=== PATIENT | female | born 1985 | race African-American/Black ===

== ENCOUNTER 2017-03-23 08:17 | Outpatient (CLI) | payer MEDICARE, MEDICAID ==
--- NOTE | 2017-03-23 09:04 | CT ---
CT THORACIC SPINE NONCONTRAST: History: Back pain. FINDINGS: Vertebral body heights and alignment are maintained. No acute fracture or dislocation are apparent. O steophytosis throughout the vertebral bodies and facets are pronounced for the patient's age. No osse ous encroachment upon the central canal or neural foramina is apparent. No traumatic disc herniation is visible. Inferior images include the retroperitoneum and show atrophy of the kidneys. IMPRESSION: Degenerative changes of the thoracic spine are pronounced for the patient's age. No acute osseous abn ormalities are demonstrated. POS: [facility]
--- NOTE | 2017-03-23 09:37 | CT ---
CT ABDOMEN AND PELVIS WITHOUT CONTRAST: Date: 03/23/17 HISTORY: Right flank pain, renal failure, patient had a renal transplant which has been removed, patient abimbola aguila on dialysis. FINDINGS: Absence of oral and IV contrast reduces the sensitivity of the exam, particularly for evaluation of s olid organs and bowel. The lung bases are clear. No free air or free fluid is seen in the abdomen or pelvis. No calcified ga llstones are seen. Both kidneys are severely atrophic. No calculi seen in the kidneys, ureters, or the urinary bladder. No hydroureteronephrosis noted on either side. Uterus and ovaries are present. A normal appearing appendix is noted. There is fecal material in the colon. Dystrophic calcification seen in the right lower quadrant. No acute osseous abnormalities are identified. IMPRESSION: Atrophic kidneys. No CT evidence of urinary tract calculi or obstruction. POS: [facility]
== END 2017-03-23 08:18 | disposition home or self-care (01) ==
LOC: CT 08:17
PROVIDERS: ATTEND Nurse Practitioner Family
DX: M54.6 Pain in thoracic spine (principal); I15.1 Hypertension secondary to other renal disorders; R94.6 Abnormal results of thyroid function studies; E66.01 Morbid (severe) obesity due to excess calories; N28.89 Other specified disorders of kidney and ureter; M47.894 Other spondylosis, thoracic region; Z99.2 Dependence on renal dialysis
CPT/HCPCS: 72128; 74176

== ENCOUNTER 2017-03-24 12:38 | Observation (INO) | payer MEDICARE, MEDICAID ==
[2017-03-24] MEDS ORDERED: ISOVUE-370 76%-LOCM 1 ML ONE (13:14)
[2017-03-24] MEDS ORDERED: diphenhydrAMINE 50 MG/ML VIAL ONE (13:15)
[2017-03-24] MEDS ORDERED: methylPREDNISolone Sod Succ/PF 125 MG/2 ML VIAL ONE (13:15)
[2017-03-24 13:31] LABS: #Basophils 0.1 thou/uL (0.0-0.2); #Eosinphils 0.1 thou/uL (0.0-0.7); #Lymphocytes 1.9 thou/uL (1.20-3.40); #Monocytes 0.4 thou/uL (0.11-0.59); #Neutrophils 5.2 thou/uL (1.40-6.50); %Basophils 1.2 % (0.0-1.0); %Eosinophils 1.5 % (0.0-10.0); %Lymphocytes 24.2 % (21.0-51.0); %Monocytes 5.7 % (0.0-10.0); %Neutrophils 67.4 % (42.0-75.0); Hemoglobin 14.6 g/dL (12.0-16.0); Mean Corpuscular HGB CONC 31.9 g/dL (32.0-36.0); Mean Corpuscular Hemoglobin 25.6 pg (27.0-31.0); Mean Corpuscular Volume 80.3 fl (81.0-99.0); Mean Platelet Volume 8.7 fL (7.4-10.4); Platelet Count 274 thou/uL (130-400); RBC Distribution Width 16.7 % (11.5-14.5); Red Blood Cell (RBC) Count 5.69 mill/uL (4.20-5.40); White Blood Cell (WBC) Count 7.7 thou/uL (4.8-10.8)
[2017-03-24 13:39] LABS: PTT 26.1 SEC (22.9-36.1); Prothrombin Time 12.8 SEC (12.0-14.7)
[2017-03-24 13:55] LABS: ALT (SGPT) 11 U/L (8-55); AST (SGOT) 14 U/L (5-34); Albumin 4.2 g/dL (3.5-5.0); Alkaline Phosphatase 87 U/L (40-150); Anion Gap 19 mmol/L (10-20); BUN (Urea Nitrogen) 31 mg/dL (7.0-18.7); Bilirubin, Total 0.6 mg/dL (0.2-1.2); CK (CPK) 139 U/L (29-168); Calc. Creatinine Clearance 0 mL/min (70-130); Carbon Dioxide 31 mmol/L (22-29); Chloride 93 mmol/L (98-107); Estimated GFR-MDRD 8; Globulin 4.6 g/dL (2.4-3.5); Glucose 108 mg/dL (70-105); Potassium 5.4 mmol/L (3.5-5.1); Protein, Total 8.8 g/dL (6.0-8.3); Sodium 138 mmol/L (136-145)
[2017-03-24 13:59] LABS: CKMB 0.8 ng/mL (0-6.6); Troponin I 0.032 ng/mL (< 0.028)
--- NOTE | 2017-03-24 15:26 | CT ---
CT ANGIO OF THE CHEST WITH AND WITHOUT CONTRAST WITH 3D POST PROCESSING: History: Right sided midback pain. FINDINGS: The pulmonary arterial vasculature is well opacified without filling defects to suggest pulmonary emb olism. There is no evidence of dilatation of the thoracic aorta. No pneumothoraces, focal areas of co nsolidation, or pleural effusions are seen. No pericardial effusion identified. Three are three tiny nodular densities very close to one another in the left upper lobe. No acute osseous abnormality garrick ntified. There are degenerative changes in the spine. Upper abdominal tomograms demonstrate atrophy k idneys. IMPRESSION: No CT evidence of pulmonary embolism. POS: [facility]
[2017-03-24] MEDS ORDERED: Ondansetron HCl/PF 4 MG/2 ML Vial ONE (16:28)
[2017-03-24 18:58] VITALS: BMI 45.7
[2017-03-24] MEDS ORDERED: Morphine 4 MG/ML Carpuject SLOW IVP PRN (19:04)
[2017-03-24] MEDS ORDERED: Ondansetron ODT 4 MG TAB SL PRN (19:05)
[2017-03-24] MEDS ORDERED: HYDROcodone/Acetaminophen 5/325 mg Tablet PO PRN ×2 (19:05)
[2017-03-24] MEDS ORDERED: Ondansetron HCl/PF 4 MG/2 ML Vial IVP PRN (19:05)
[2017-03-24] MEDS ORDERED: Acetaminophen 325 MG TAB PO PRN (19:05)
[2017-03-25] MEDS ORDERED: PROVENTIL INHALER 6.7 G (200 INHALATIONS) INH PRN (00:05)
[2017-03-25] MEDS ORDERED: tiZANidine HCl 4 MG TAB PO PRN (00:05)
[2017-03-25] MEDS ORDERED: cloNIDine 0.1 MG TAB PO PRN (00:05)
[2017-03-25] MEDS ORDERED: traMADol HCl 50 MG TAB PO PRN (00:05)
[2017-03-25] MEDS ORDERED: Albuterol Sulfate 2.5 mg/3 ml Neb NEB PRN (00:05)
[2017-03-25] MEDS ORDERED: ALPRAZolam 1 MG TAB PO SCH ×2 (00:15→09:00)
[2017-03-25] MEDS ORDERED: Gabapentin 100 MG CAP PO SCH ×2 (00:15→09:00)
[2017-03-25] MEDS ORDERED: Topiramate 25 MG TAB PO SCH ×2 (00:15→09:00)
[2017-03-25 02:26] LABS: Anion Gap 23 mmol/L (10-20); BUN (Urea Nitrogen) 44 mg/dL (7.0-18.7); Calc. Creatinine Clearance 17 mL/min (70-130); Calcium 9.2 mg/dL (7.8-10.44); Carbon Dioxide 25 mmol/L (22-29); Chloride 92 mmol/L (98-107); Estimated GFR-MDRD 6; Glucose 145 mg/dL (70-105); Potassium 5.9 mmol/L (3.5-5.1); Sodium 134 mmol/L (136-145)
[2017-03-25 02:40] LABS: HBSAg Index 0.47 S/CO (0-0.99); Hep B Surf Ag Non-Reactive S/CO (NonReactive)
[2017-03-25] MEDS ORDERED: Dextrose 50% Abboject 50 ML SYRINGE SLOW IVP SCH (03:00)
[2017-03-25] MEDS ORDERED: Sodium Bicarb 50 MEQ/50 ML VIAL IVP SCH (03:00)
[2017-03-25] MEDS ORDERED: Insulin Regular 300 UNITS/3 ML VIAL IVP SCH (03:00)
[2017-03-25] MEDS ORDERED: Ondansetron ODT 4 MG TAB PO PRN (03:22)
[2017-03-25] MEDS ORDERED: Calcium Carbonate 500 MG ChewTAB PO PRN (03:22)
[2017-03-25] MEDS ORDERED: Nitroglycerin 0.4 MG TAB (25 Tab Bottle) PO PRN (03:22)
[2017-03-25] MEDS ORDERED: Ondansetron HCl/PF 4 MG/2 ML Vial IVP PRN (03:22)
[2017-03-25] MEDS ORDERED: hydrALAZINE 20 MG/ML VIAL SLOW IVP PRN (03:25)
[2017-03-25 03:44] LABS: BHCG - Serum Negative (NEGATIVE); Pregs Control Background? CLEAR/WHITE (CLR/WHITE); Pregs Control Bar Appear? YES (CONTROL BAR)
[2017-03-25] MEDS ORDERED: Sodium Bicarb 50 MEQ/50 ML Abboject 8.4% SYRINGE IVP SCH (04:00)
--- NOTE | 2017-03-25 04:01 | HP ---
DATE OF ADMISSION: 03/24/2017 The patient was seen and examined on 03/24/2017. PRIMARY CARE PHYSICIAN: JENNIFER Angel CHIEF COMPLAINT: Right-sided back pain of three weeks' duration. HISTORY OF PRESENT ILLNESS: Patient is a 31-year-old female with end-stage renal disease on hemodial ysis, presented to the emergency room with right-sided back pain that has been ongoing for last 3 wee ks. The pain got worse today, for which she presented to the emergency room. Her pain is mainly loc alized around the right flank. It is more or less constant, worse on movement. She denies any injur y. No fever or chills reported. The pain is localized without any radiation. She has seen a primar care physician for the same and underwent a CT scan of the thoracic spine yesterday that was negati ve for acute findings. No similar symptoms in the past. In the emergency room, her workup was consistent with hyperkalemia. She received 1 dose of Kayexalat e, Zofran, Solu-Medrol, Benadryl, and morphine in the emergency room. PAST MEDICAL HISTORY: 1. End-stage renal disease on hemodialysis. 2. Status post failed allograft. 3. Morbid obesity with a BMI of 45.7. 4. Mild intermittent asthma. 5. Anxiety, depression. PAST SURGICAL HISTORY: 1. Kidney transplant in 2004. 2. Dialysis access. ALLERGIES: The patient is allergic to IODINE and LATEX. CURRENT HOME MEDICATIONS: Albuterol nebulizer as needed, albuterol inhaler as needed, Xanax 1 mg b.i .d., vitamin D3 of 1000 units daily, clonidine as needed, multivitamin daily, Lopressor 12.5 mg daily , Remeron 30 mg daily, Protonix 40 mg b.i.d., Seroquel 300 mg daily, tizanidine 4 mg as needed, Topam ax 50 mg b.i.d., Ultram as needed. SOCIAL HISTORY: Patient currently lives at home. Denies any alcohol, tobacco, or drug use. FAMILY HISTORY: Negative for cardiac disease. REVIEW OF SYSTEMS: The following complete review of systems was negative, unless otherwise mentioned in the HPI or below: Constitutional: Weight loss or gain, ability to conduct usual activities. Skin: Rash, itching. Eyes: Double vision, pain. ENT/Mouth: Nose bleeding, neck stiffness, pain, tenderness. Cardiovascular: Palpitations, dyspnea on exertion, orthopnea. Respiratory: Shortness of breath, wheezing, cough, hemoptysis, fever or night sweats. Gastrointestinal: Poor appetite, abdominal pain, heartburn, nausea, vomiting, constipation, or diarr hea. Genitourinary: Urgency, frequency, dysuria, nocturia. Musculoskeletal: Pain, swelling. Neurologic/Psychiatric: Anxiety, depression. Allergy/Immunologic: Skin rash, bleeding tendency. PHYSICAL EXAMINATION: VITAL SIGNS: Showed temperature 98.4, respiration 18, pulse rate of 116, blood pressure of 106/59, O 2 saturation 98% on room air. GENERAL: A 31-year-old female in mild distress due to right flank pain. HEENT: Head, atraumatic, normocephalic. Sclerae anicteric. Moist mucous membranes. No oral lesion . NECK: Supple, no JVD, no carotid bruit. LUNGS: Clear to auscultation bilaterally. HEART: S1, S2 present. Regular rate and rhythm. No murmurs, rubs, or gallops appreciated. ABDOMEN: Soft, nontender, bowel sounds present. EXTREMITIES: No edema or calf tenderness. MUSCULOSKELETAL: There was tenderness over the right flank on superficial palpation. No tenderness over the spine. EXTREMITIES: No edema or calf tenderness. NEUROLOGIC: Grossly nonfocal, moves all four extremities. Power was 5/5 in all extremities. PSYCHIATRY: Alert, awake, oriented x3. PERIPHERAL VASCULAR: Radial pulses palpable bilaterally. MUSCULOSKELETAL: No joint swelling or tenderness. LABORATORY FINDINGS: CBC showed WBC 7.7 with hemoglobin 14.6, hematocrit 45.7, platelet of 274,000. PT, INR, PTT normal range. Potassium in the emergency room was 5.4. Repeat potassium today is 5.9. Troponin in the emergency room was 0.032. Troponin last year was 0.045. CT angiogram of the chest was negative for pulmonary embolism. Cardiac catheterization in 2015 was negative. Echocardiogram in 2015 showed left ventricular ejection fraction of 60-65%. IMPRESSION: 1. Right flank pain, suspected musculoskeletal. 2. Hyperkalemia of unclear etiology. The patient underwent hemodialysis on Wednesday (03/24/2017). 3. History of end-stage renal disease on hemodialysis Wednesday, Wednesday, Wednesday. 4. Anxiety and depression. 5. Mild intermittent asthma. 6. Morbid obesity with a BMI of 45.7. 7. Indeterminate troponins, probably secondary to renal disease. Patient had a negative cardiac cat heterization in 2014. PLAN: The patient will be monitored on the telemetry unit. Nephrology has been consulted. She will undergo hemodialysis per Nephrology. Her telemetry monitoring by my review showed peaked T waves. We will give her insulin D50 [address] Santana was notified with the labs with potas sium 5.9. Dr. Santana recommended repeat Kayexalate. We will resume her home medications including muscle relaxants. Plan of care was discussed with the patient. She stated understanding. DISPOSITION: Probably later today after hemodialysis if okay with Nephrology. The patient was advised to follow up with the primary care physician for right flank pain. Please note that the patient was seen and examined on 03/24/2017.
--- NOTE | 2017-03-25 06:13 | CON ---
DATE OF CONSULTATION: 03/24/2017. CONSULTING PHYSICIAN: Dr. Gomez. REASON FOR CONSULTATION: End-stage renal disease evaluation and care. REASON FOR ADMISSION: Back pain. HISTORY OF PRESENT ILLNESS: A 31-year-old female with a history of end-stage renal disease, hypertension, tachycardia, pulmonary disease came to the hospital with above symptoms and is being ev aluated. Nephrology was consulted for maintenance hemodialysis. The patient complains of back pain for the last 3 weeks with tenderness. No fever or chills. No nausea or vomiting. Occasional cough. No skin rash. PAST MEDICAL HISTORY: Positive for end-stage renal disease, pulmonary disease, tachycardia. PAST SURGICAL HISTORY: Transplant and dialysis access placement. HOME MEDICATIONS: Include Protonix, Xanax, oxcarbazepine, vitamin D3, Ultram, Seroquel. ALLERGIES: IODINE AND LATEX GLOVES. SOCIAL HISTORY: No smoking, alcohol, or illicit drug abuse. FAMILY HISTORY: No history of kidney disease. REVIEW OF SYSTEMS: The following complete review of systems was negative, unless otherwise mentioned in the HPI or below: Constitutional: Weight loss or gain, ability to conduct usual activities. Skin: Rash, itching. Eyes: Double vision, pain. ENT/Mouth: Nose bleeding, neck stiffness, pain, tenderness. Cardiovascular: Palpitations, dyspnea on exertion, orthopnea. Respiratory: Shortness of breath, wheezing, cough, hemoptysis, fever, or night sweats. Gastrointestinal: Poor appetite, abdominal pain, heartburn, nausea, vomiting, constipation, or diarr hea. Genitourinary: Urgency, frequency, dysuria, nocturia. Musculoskeletal: Pain, swelling. Neurologic/Psychiatric: Anxiety, depression. Allergy/Immunologic: Skin rash, bleeding tendency. PHYSICAL EXAMINATION: GENERAL: This is an obese female in no apparent distress. VITAL SIGNS: Temperature 98.4, pulse 94, respiratory rate 18, blood pressure 128/76. HEENT: Atraumatic, normocephalic. Oral mucosa is moist. NECK: Supple, no masses. CARDIOVASCULAR: S1, S2. Rate and rhythm regular. RESPIRATORY: Clear. ABDOMEN: Soft. MUSCULOSKELETAL: No tenderness. DERMATOLOGIC: No skin rash. NEUROLOGIC: Alert, awake. PSYCHIATRIC: Mood and affect normal. back where she is complaining of pain on the right side. LABORATORY DATA: Hemoglobin is 14.6, potassium is 5.4, BUN is 31, creatinine is 7.4. ASSESSMENT AND PLAN: 1. End-stage renal disease. We will continue dialysis. 2. Mild hyperkalemia. Recheck labs in the morning. If persistent, we will have dialysis. 3. Alkalosis, mild. 4. Edema, controlled. 5. Hypertension, stable. 6. Anemia. Hemoglobin is stable. Repeat labs in the morning. Limit potassium in the diet. We will follow. Thank you for the consult.
[2017-03-25] MEDS ORDERED: Acetaminophen 325 MG TAB PO SCH (09:00)
[2017-03-25] MEDS ORDERED: Pantoprazole 40 MG GRANULES PACKET PO SCH (09:00)
[2017-03-25] MEDS ORDERED: Metoprolol Tartrate 25 MG TAB PO SCH (09:00)
[2017-03-25] MEDS ORDERED: Docusate 100 MG CAP PO SCH (09:00)
[2017-03-25] MEDS ORDERED: Mirtazapine 30 MG TAB PO SCH (09:00)
[2017-03-25] MEDS ORDERED: Famotidine 20 MG TAB PO SCH (09:00)
[2017-03-25] MEDS ORDERED: Lidocaine-Prilocaine 2.5% Cream 5 GM TUBE TOP SCH (10:00)
--- NOTE | 2017-03-25 13:46 | ULT ---
EXAM: RENAL ULTRSOUND: HISTORY: Three weeks of right flank pain. COMPARISON: None. TECHNIQUE: Sagittal and transverse imaging of the kidneys is performed. FINDINGS: Neither kidney is well defined or could be well assessed. There appears to be severe thinning of the right renal cortex. No obvious hydronephrosis in what is presumed to be the visualized right kidney . Suspected right kidney measures 2.0 x 2.4 x 5.9 cm. The urinary bladder is not appreciated. IMPRESSION: Suboptimally nondiagnostic exam. POS: [facility]
--- NOTE | 2017-03-25 15:25 | PRG ---
DATE OF SERVICE: 03/25/2017 SUBJECTIVE: Patient was seen and examined at bedside and overnight events noted. Patient denies any shortness of breath or chest pain or palpitation. No history of nausea or vomiting or diarrhea or f ever or chills or cramps. OBJECTIVE: GENERAL: This is an obese female in no apparent distress. VITAL SIGNS: Temperature 98.2, pulse 80, respiratory rate 16, blood pressure 131/81. HEENT: Atraumatic, normocephalic. Oral mucosa is moist. NECK: Supple. CARDIOVASCULAR: S1, S2 heard. Rate and rhythm regular. RESPIRATORY: Clear to auscultation. GASTROINTESTINAL: Abdomen is soft. MUSCULOSKELETAL: No tenderness. No edema. DERMATOLOGIC: No skin rash. NEUROLOGIC: Alert and awake and oriented x3. No focal neurologic deficits. Moving all the extremiti es. PSYCHIATRIC: Mood and affect normal. LABORATORY DATA: Potassium is 5.9, BUN is 44, creatinine is 9.2. ASSESSMENT AND PLAN: 1. End-stage renal disease, continue dialysis. Extra dialysis today for 2 hours. 2. Hyperkalemia. Plan is to have dialysis and limit potassium in the diet. 3. Edema. 4. Hypertension. 5. Anemia. Plan is to continue on dialysis Wednesday, Wednesday, and Wednesday and we will have an extra session of di alysis for hyperkalemia today.
[2017-03-25 15:34] LABS: Anion Gap 19 mmol/L (10-20); BUN (Urea Nitrogen) 27 mg/dL (7.0-18.7); Calc. Creatinine Clearance 28 mL/min (70-130); Calcium 8.9 mg/dL (7.8-10.44); Carbon Dioxide 29 mmol/L (22-29); Chloride 95 mmol/L (98-107); Estimated GFR-MDRD 11; Glucose 87 mg/dL (70-105); Potassium 3.7 mmol/L (3.5-5.1); Sodium 139 mmol/L (136-145)
[2017-03-25 15:58] VITALS: BP 148/76; TEMP 97.6
--- NOTE | 2017-03-25 23:14 | DIS ---
DATE OF ADMISSION: 03/24/2017. DATE OF DISCHARGE: 03/24/2017. PRIMARY CARE PHYSICIAN: JENNIFER Angel CONDITION AT THE TIME OF DISCHARGE: Stable and improved. DISCHARGE DIAGNOSES: 1. Hyperkalemia. 2. End-stage renal disease, on hemodialysis. 3. Hypertension. 4. Anemia. 5. Right flank pain ongoing for 3 weeks without any specific cause, likely musculoskeletal. PROCEDURES DONE IN THE HOSPITAL: 1. CT angio of the thorax, which is negative for any pulmonary embolism. 2. Renal ultrasound which shows atrophic kidneys, but no significant evidence of stones or pyeloneph ritis. 3. Hemodialysis. CONSULTATION: Nephrology, Dr. Santana. DISCHARGE MEDICATIONS: Remain the same as admission medications. Please see admission H&P for hattie ls. BRIEF HOSPITAL COURSE: Ms. Ye was admitted to the hospital for findings of hyperkalemia with po tassium of 5.4. She received the hyperkalemia cocktail and was admitted for further evaluation. She was otherwise hemodynamically stable. She has complaints of ongoing right flank pain for 3 weeks and has had multiple workups including a C T scan of the thoracic spine and CT scan of the abdomen and pelvis without any clear etiology. She u nderwent a renal ultrasound, which was also unremarkable. She underwent a CT angio, which was also negative. She was continued on hemodialysis and received extra hemodialysis for removal of the potassium. Her potassium improved to 3.7 with hemodialysis back to back and she was cleared for discharge. She will follow up with her primary care physician and fire ranger as an outpatient. At this time, she is hemodynamically stable. She was seen and examined by me prior to discharge. PHYSICAL EXAMINATION: VITAL SIGNS: Temperature 97.2, pulse of 91, respirations 16, saturating 100% on room air, blood pres sure 131/81. No acute distress, awake, alert, oriented x3. CHEST: Clear to auscultation without any wheezing, rales, or rhonchi. HEART: Rhythm is regular. BACK: She has some mild right-sided CVA tenderness without any evidence of hematoma, skin discolorat ion. She will continue to follow up with her primary care physician with regards to further workup of her flank pain as necessary. So far, there is no evidence to suggest any infection.
== END 2017-03-25 15:54 | disposition home or self-care (01) ==
LOC: ERS 12:38 → 2SW 17:15
PROVIDERS: ADMIT Internal Medicine; ATTEND Internal Medicine
DX: E87.5 Hyperkalemia (principal); I12.0 Hypertensive chronic kidney disease with stage 5 chronic kidney disease or end stage renal disease; N18.6 End stage renal disease; D63.1 Anemia in chronic kidney disease; R10.9 Unspecified abdominal pain; E66.01 Morbid (severe) obesity due to excess calories; R60.9 Edema, unspecified; R00.0 Tachycardia, unspecified; E87.3 Alkalosis; J45.20 Mild intermittent asthma, uncomplicated; F41.9 Anxiety disorder, unspecified; F32.9 Major depressive disorder, single episode, unspecified; Z68.42 Body mass index [BMI] 45.0-49.9, adult; Z99.2 Dependence on renal dialysis; Z79.899 Other long term (current) drug therapy; Z91.041 Radiographic dye allergy status; Z91.040 Latex allergy status; Z94.0 Kidney transplant status
CPT/HCPCS: 71275; 76770; 80048 ×2; 80053; 82550; 82553; 83880; 84484; 84703; 85025; 85610; 85730; 87340; 96374; 96375 ×2; 99285; G0378; 36415; 90935; G0257; J1200; J1815; J2270; J2405; J2930

== ENCOUNTER 2017-07-09 12:11 | Emergency (ER) | payer MEDICARE, MEDICAID ==
[2017-07-09 13:24] LABS: #Basophils 0.1 thou/uL (0.0-0.2); #Eosinphils 0.1 thou/uL (0.0-0.7); #Lymphocytes 2.4 thou/uL (1.20-3.40); #Monocytes 0.7 thou/uL (0.11-0.59); #Neutrophils 6.2 thou/uL (1.40-6.50); %Eosinophils 1.4 % (0.0-10.0); %Lymphocytes 25.5 % (21.0-51.0); %Neutrophils 65.2 % (42.0-75.0); Hemoglobin 15.5 g/dL (12.0-16.0); Mean Corpuscular HGB CONC 32.2 g/dL (32.0-36.0); Mean Corpuscular Hemoglobin 26.7 pg (27.0-31.0); Mean Corpuscular Volume 82.9 fl (81.0-99.0); Mean Platelet Volume 7.5 fL (7.4-10.4); Platelet Count 265 thou/uL (130-400); RBC Distribution Width 16.4 % (11.5-14.5); Red Blood Cell (RBC) Count 5.81 mill/uL (4.20-5.40); White Blood Cell (WBC) Count 9.5 thou/uL (4.8-10.8)
[2017-07-09 13:50] LABS: ALT (SGPT) 7 U/L (8-55); AST (SGOT) 10 U/L (5-34); Albumin 4.4 g/dL (3.5-5.0); Alkaline Phosphatase 75 U/L (40-150); Anion Gap 20 mmol/L (10-20); BUN (Urea Nitrogen) 33 mg/dL (7.0-18.7); Bilirubin, Total 0.7 mg/dL (0.2-1.2); Calc. Creatinine Clearance 0 mL/min (70-130); Calcium 9.3 mg/dL (7.8-10.44); Carbon Dioxide 26 mmol/L (22-29); Chloride 94 mmol/L (98-107); Estimated GFR-MDRD 6; Globulin 4.7 g/dL (2.4-3.5); Glucose 89 mg/dL (70-105); Potassium 4.9 mmol/L (3.5-5.1); Protein, Total 9.1 g/dL (6.0-8.3); Sodium 135 mmol/L (136-145)
== END 2017-07-09 14:38 | disposition home or self-care (01) ==
LOC: ERS 12:11
DX: I95.3 Hypotension of hemodialysis (principal); R00.0 Tachycardia, unspecified; J45.909 Unspecified asthma, uncomplicated; N18.4 Chronic kidney disease, stage 4 (severe); F41.9 Anxiety disorder, unspecified; F32.9 Major depressive disorder, single episode, unspecified; Z99.2 Dependence on renal dialysis; Z79.899 Other long term (current) drug therapy
CPT/HCPCS: 36415; 80053; 85025; 93005; 96360

== ENCOUNTER 2018-01-28 09:28 | Observation (INO) | payer MEDICARE, MEDICAID ==
[2018-01-28 10:20] LABS: #Basophils 0.1 thou/uL (0.0-0.2); #Eosinphils 0.1 thou/uL (0.0-0.7); #Lymphocytes 2.2 thou/uL (1.20-3.40); #Monocytes 0.8 thou/uL (0.11-0.59); %Basophils 1.2 % (0.0-1.0); %Eosinophils 0.8 % (0.0-10.0); %Lymphocytes 21.7 % (21.0-51.0); %Monocytes 7.4 % (0.0-10.0); Hemoglobin 14.4 g/dL (12.0-16.0); Mean Corpuscular Hemoglobin 26.1 pg (27.0-31.0); Mean Corpuscular Volume 84.3 fL (78.0-98.0); Mean Platelet Volume 7.6 fL (7.4-10.4); Platelet Count 201 thou/uL (130-400); RBC Distribution Width 16.3 % (11.5-14.5); Red Blood Cell (RBC) Count 5.52 mill/uL (4.20-5.40); White Blood Cell (WBC) Count 10.1 thou/uL (4.8-10.8)
[2018-01-28 10:29] LABS: PTT 27.9 SEC (22.9-36.1)
[2018-01-28 10:30] LABS: D-Dimer Test 0.95 *mcg/mL (0.27-0.43)
--- NOTE | 2018-01-28 10:32 | RAD ---
PORTABLE CHEST ONE VIEW: Date: 01-28-18 Time: 10:17 a.m. History: Chest pain. Patient is on dialysis. FINDINGS: Comparison is made with exam of 06-08-16. The heart size is normal. No focal areas of consolidation, pneumothorax, or pleural effusions are see n. IMPRESSION: No radiographic evidence of acute cardiopulmonary process. POS: [facility]
[2018-01-28 10:44] LABS: ALT (SGPT) 13 U/L (8-55); AST (SGOT) 13 U/L (5-34); Albumin 3.4 g/dL (3.5-5.0); Alkaline Phosphatase 55 U/L (40-150); Anion Gap 14 mmol/L (10-20); BUN (Urea Nitrogen) 14 mg/dL (7.0-18.7); Bilirubin, Total 0.5 mg/dL (0.2-1.2); Calc. Creatinine Clearance 0 mL/min (70-130); Calcium 10.3 mg/dL (7.8-10.44); Carbon Dioxide 32 mmol/L (22-29); Chloride 97 mmol/L (98-107); Estimated GFR-MDRD 13; Globulin 3.8 g/dL (2.4-3.5); Glucose 87 mg/dL (70-105); Potassium 3.7 mmol/L (3.5-5.1); Protein, Total 7.2 g/dL (6.0-8.3); Sodium 139 mmol/L (136-145)
--- NOTE | 2018-01-28 14:52 | ULT ---
BILATERAL LOWER EXTREMITY VENOUS DOPPLER ULTRASOUND: Date: 01/28/18 HISTORY: Hypercoagulable state. TECHNIQUE: Tamayo scale ultrasound with color flow and spectral Doppler imaging of the deep venous systems of the lower extremities was performed bilaterally. FINDINGS: There is good flow, compression, and augmentation noted in the common femoral, femoral, deep femoral, popliteal, posterior tibial, and greater saphenous veins on either side. IMPRESSION: No evidence of deep venous thrombosis in either lower extremity. POS: [facility]
--- NOTE | 2018-01-28 15:06 | ULT ---
ULTRASOUND PELVIS DOPPLER DUPLEX: DATE: 01/28/2018. HISTORY: A 32-year-old female in 1st trimester of , who presents to the emergency department with nicky st pain. Evaluate for viability of . TECHNIQUE: Transabdominal transducer was used to evaluate intrapelvic contents with carrillo scale, color flow, and spectral analysis. The patient refused the transvaginal ultrasound. FINDINGS: The urinary bladder is not full. There is somewhat suboptimal evaluation of intrapelvic contents bec ause of a combination of body habitus, lack of full urinary bladder, and lack of transvaginal ultraso und images. Uterus measures 9 x 5.5 x 6.5 cm. There is a crescentic intrauterine gestational sac with dimensions of approximately 4.5 x 2 x 3.5 cm. Yolk sac present. pole visualized. [place] rump length measurement accuracy is decreased because of the low image resolution. CRL=2.0 cm, corresponding to 8 w 4 d. No definite subchorionic hemorrhage identified. heart activity detected with rate of 173 b.p.m. Right ovary is approximately 3 x 3 x 2.5 cm, and has blood flow demonstrated by Doppler. No corpus l uteal cyst. The left ovary is not visualized. No obvious free fluid visualized in the cul-de-sac. IMPRESSION: First trimester live sarmiento intrauterine gestation estimated to be 8 weeks 4 days gestational age. POS: [facility]
[2018-01-28 16:02] LABS: Troponin I 0.018 ng/mL (< 0.028)
[2018-01-28 16:27] VITALS: BMI 47.6
[2018-01-28 19:16] LABS: Troponin I 0.017 ng/mL (< 0.028)
[2018-01-28] MEDS: Famotidine 20 MG TAB PO SCH (19:36)
--- NOTE | 2018-01-28 20:49 | HP ---
PRIMARY CARE PHYSICIAN: Gwen Lane, PURCHASING CONTRACTING CLERK-C CHIEF COMPLAINT: Substernal chest pain. HISTORY OF PRESENT ILLNESS: This is a 32-year-old woman with a background of congestive heart failure as well as end-stage renal disease, currently on hemodialysis. Hx of DVT, recently taken off Heparin 2 days ago. She reports early , but has not yet seen an OB or undergone an ultrasound. She is unsure how far long she is. Due to being , her hemodialysis has been increased to 6 days a week. She presents complaining of chest pain that first occurred yesterday evening, lasting approximately 3 hours and resolving on its own, 6/10 in severity, radiating to her back. She denies any associated shortness of breath, cough, or hemoptysis. She denies any preceding strenuous activity. Denies any dizziness. Has not experienced any leg swelling or pain. Her pain recurred during her dialysis today, similar in intensity. Relieved once aspiring was given. In the ED, she was noted to be hypotensive with a blood pressure of 97/68. She was tachycardiac at 112 upon initial presentation with nonlabored breathing. Her pain improved from 6/10 to 3/10 following the aspirin. Workup was initiated to rule out a PE. A D-dimer was obtained in the ED, was positive. She underwent a chest x-ray that was unremarkable. Initial TNI was normal. The patient was recommended a V/Q scan, however, once the tech came to debt management counselor her on the study, she became alarmed that she was told that it could "harm her baby." For that reason, she has declined the V/Q scan. Further discussed with Dr. Tee who explained risks of having a PE far outweigh any possible harm done to the fetus. Also explained she is high-risk given her PMH and previous miscarriage. She again declined and was agreeable to proceed with investigations for CP rule out. She is under Dr. Frias (Cardiology) and also follows with Dr. Carmona (Nephrology) regularly. She is comfortable at present without any complaints and completely pain-free. She will be admitted for further workup and management. REVIEW OF SYSTEMS: CONSTITUTIONAL: No fever, chills, or sweats. No weakness. RESPIRATORY: No cough or sputum production. No hemoptysis or shortness of breath. CARDIOVASCULAR: Chest pain has resolved. No palpitations. GI: No any nausea or vomiting. She did have nausea on initial presentation, but this resolved with Zofran. Denies any abdominal pain. No bowel changes. GENITOURINARY: No urinary symptoms. MANAGER MOTOR: No dizziness, headaches, or change in mental status. EXTREMITIES: No lower limb swelling, edema, or calf tenderness. PAST MEDICAL HISTORY: 1. End-stage renal disease, on hemodialysis 6 days per week, under Dr. Carmona. 2. Status post failed allograft. 3. Morbid obesity. 4. CHF, under Dr. Frias. 5. Anxiety/depression. 6. Previous miscarriage. 7. History of previous DVT. 8. Asthma. PAST SURGICAL HISTORY: 1. Kidney transplant in 2004. 2. Dialysis access. 3. Cardiac catheterization on 07/23/2014, showing LVEF of 65%. No CAD. SOCIAL HISTORY: She lives at home alone. Denies any alcohol use or drug use. No smoking history. ALLERGIES: 1. IODINE. 2. LATEX GLOVES. CURRENT MEDICATIONS: 1. 1 mg p.o. daily. 2. Heparin, recently discontinued 2 days ago. PHYSICAL EXAMINATION: VITAL SIGNS: Temperature 98.4, pulse 111, respirations 15, O2 saturation 100%, and blood pressure 120/82. HEENT: Normocephalic and atraumatic. Pupils are equal, round, and reactive to light. GENERAL APPEARANCE: The patient was found to be in no distress. She is alert and oriented. Appears to be resting comfortably. NECK: Supple without lymphadenopathy. LUNGS: Clear to auscultation bilaterally without wheezes, rales, or rhonchi. CARDIAC: Regular rate and rhythm without any audible murmurs, rubs, or gallops. ABDOMEN: Soft, nontender, nondistended. Normoactive bowel sounds present. EXTREMITIES: No clubbing, cyanosis, or edema. No calf tenderness. NEUROLOGIC: Unremarkable. No focal deficits. PSYCHIATRIC: Normal affect. Oriented. LABORATORY DATA: White blood count 10.1, hemoglobin 14.4, hematocrit 46.5, and platelets 201. D-dimer is 0.95. Sodium 139, potassium 3.7, BUN 14, creatinine 4.63, eGFR 13. Total bilirubin 0.5. LFTs unremarkable. TnI x2 unremarkable. BNP 10.5. Albumin 3.4. Total beta hCG greater than 225,000. IMAGING DATA: 1. Chest x-ray on 01/28/2018, no radiographic evidence of acute cardiopulmonary process. Heart size is normal. 2. Pelvis ultrasound on 01/28/2018, confirms first trimester live single sarmiento intrauterine gestation, estimated to be 8 weeks and 4 days and gestational age. 3. Venogram 01/28/2018, no evidence of deep venous thrombosis on either of lower extremities. ASSESSMENT AND PLAN: The patient will be admitted to the hospital for further workup and management of the following medical conditions. 1. Possible pulmonary embolism. Awaiting patient's decision regarding V/Q scan following discussion with Dr. Tee. 2. Chest pain rule out. The patient with known history of congestive heart failure. I have discussed the case with her weight calculator Dr. Frias, who agrees with plans for echocardiogram. We will hold off stress test given she is . Cardiology consult placed as per discussion. Awaiting third TNI. 3. ESRD. Consult placed to Nephrology. Will undergo dialysis tomorrow. 4. High-risk . Dr. Tee available to answer any questions related to her treatment. 5. Gastrointestinal prophylaxis. 6. VTE prophylaxis with mechanical SCDs for now. As awaiting work-up for possible DVT/PE. The patient's case was discussed with Dr. Nelson, who is in agreement with plan as above. Job ID: [id number] Pt seen and examined in conjunction with Phi Thomas PA-C on the day of service. I have seen and evaluated the patient and reviewed all documentations. I agree with the findings and plan as outlined in his note and participated in Medical decision-making. Adrian Nelson M.D. ANANT
[2018-01-29] MEDS: Acetaminophen 325 MG TAB PO PRN ×2 (01:19→21:02)
--- NOTE | 2018-01-29 01:51 | CON ---
DATE OF CONSULTATION: 01/28/2018 OB CONSULTATION REFERRING PROVIDER: Shiloh Sanchez PA-C REASON FOR REFERRAL: First trimester . HISTORY OF PRESENT ILLNESS: The patient is a 32-year-old female with longstanding renal disease requiring dialysis, who presented to the emergency room after complaining of chest pain and shortness of breath while receiving dialysis. Evaluation of her initial assessment by the ER providers was concerned for pulmonary embolism. Given the level of risk to this , we were consulted for any counseling or suggestions of management. A viable intrauterine was confirmed today with pole and heart tones present in the 170s and estimated gestational age of about 8 weeks. During the evaluation for pulmonary embolism , the patient has had a normal chest x-ray and has refused a V/Q scan to rule out or evaluate for PE. The patient does have an allergy to iodine containing products. The patient at the time of consenting for the V/Q scan, refused due to the radiation exposure and it was about this time that I was asked to come and help. Upon entering the room and discussing with the patient what I understood of her situation, the patient confirmed that the nuclear equipment research engineer that came to consent her, shared with her that the radiation exposure could harm her child or her fetus and that the radiation would remain within her for the next 24 hours, which concerned the patient enough that she declined any further testing. At the time of my evaluation, the patient did not appear to be in any distress. She was slightly tachycardic in the 100s, but did not appear tachypneic, was not requiring any supplemental oxygenation, was lying fairly supine in the bed, appearing comfortable. The patient has plans to establish care with Dr. Van Ordoñez in the community this Wednesday. The patient has had one previous resulting in a first trimester loss. The patient has communicated her cra officer, who has been dialyzing her 6 days a week given the increased risk for and the apparent improved outcomes with more frequent dilatation, normal frequent dialysis. We did discuss my understanding of her situation that there is concern that she may have a pulmonary embolism as patient does have a history of DVT in the past and only recently was taken off heparin. We discussed the risk of an undiagnosed PE versus limited exposure to radiation to the fetus in the first trimester. We discussed that the radiation exposure is under the threshold that is considered fairly dangerous for the baby and compare that to the potential life-threatening risk of an undiagnosed PE. The patient does not have any obstetric complaints at this time. There is nothing at this point I can offer to the patient's care. She does have a very high risk with about a 40% chance of loss and 50% to 70 % probability of delivery and the elevated risk for hypertensive disorder during this . I did not share these numbers directly with the patient , but did offer to share them with her should she desire to hear the increased risks associated with and her condition. However, given the already very stressful situation she was in and that her encounter was more related to a PE workup than the jeopardy of the , I only shared that the has a higher risk of ending in miscarriage by up to 50% as compared to the very minimal risks associated with radiation. The patient, I believe, is being admitted to the medicine team for evaluation of her chest pain. At this time, the patient has refused any further workup for evaluation of pulmonary embolism. Should anticoagulation be necessary, Lovenox would be the preferred method at this time. I offered to answer any questions that the patient and her family would have, but they did not have any at the time of our encounter. Approximately 15 to 20 minutes were spent [id number]. Job ID: [id number] MTDD
--- NOTE | 2018-01-29 03:20 | CON ---
DATE OF CONSULTATION: 01/28/2018 NEPHROLOGY CONSULT CONSULTING PHYSICIAN: Dr. Crawford REASON FOR CONSULTATION: End-stage renal disease evaluation and care. REASON FOR ADMISSION: Chest pain while dialysis. HISTORY OF PRESENT ILLNESS: Ms. Ye is a 32-year-old female, who is currently and with history of asthma, end-stage renal disease, hypertension, kidney transplant, came to the hospital with the above complaints and be evaluated. The patient was having daily dialysis, and was at dialysis, and snf through dialysis, started having chest pain and was sent to the ER. The patient is feeling better now, but there is concern for PE, and we are awaiting further tests. PAST MEDICAL HISTORY: Positive for end-stage renal disease, tachycardia, asthma and CKD. PAST SURGICAL HISTORY: 1. Kidney transplant. 2. Dialysis. 3. Fistula placement. HOME MEDICATION: vitamin. ALLERGIES: IODINE AND LATEX GLOVES. SOCIAL HISTORY: No smoking or alcohol. FAMILY HISTORY: Negative. REVIEW OF SYSTEMS: CONSTITUTIONAL: Negative for weight loss or gain, ability to conduct usual activities. SKIN: Negative for rash, itching. EYES: Negative for double vision, pain. ENT/MOUTH: Negative for nose bleeding, neck stiffness, pain, tenderness. CARDIOVASCULAR: Negative for palpitations, dyspnea on exertion, orthopnea. RESPIRATORY: Negative for shortness of breath, wheezing, cough, hemoptysis, fever or night sweats. GASTROINTESTINAL: Negative for poor appetite, abdominal pain, heartburn, nausea, vomiting, constipation, or diarrhea. GENITOURINARY: Negative for urgency, frequency, dysuria, nocturia. MUSCULOSKELETAL: Negative for pain, swelling. NEUROLOGIC/PSYCHIATRIC: Negative for anxiety, depression. ALLERGY/IMMUNOLOGIC: Negative for skin rash, bleeding tendency. PHYSICAL EXAMINATION: GENERAL APPEARANCE: Morbidly obese female, in no apparent distress. VITAL SIGNS: Temperature 98.1, pulse 112, respiratory rate 18, blood pressure 145/80. HEENT: Atraumatic, normocephalic. Oral mucosa is moist NECK: Supple. CARDIOVASCULAR: S1, S2 heard. Rate and rhythm regular. RESPIRATORY: Clear. GASTROINTESTINAL: Abdomen is soft. MUSCULOSKELETAL: 1+ edema. DERMATOLOGIC: No skin rash. NEUROLOGIC: Alert and awake and oriented x3. No focal neurologic deficits. LABORATORY DATA: Hemoglobin is 14.4, potassium 3.7, BUN is 14, creatinine is 4.6. ASSESSMENT AND PLAN: 1. End-stage renal disease, on hemodialysis, no dialysis today. We will continue dialysis from tomorrow. Dr. Carmona will be notified. 2. Edema, controlled. 3. Hypertension, stable. 4. Anemia, monitor. The patient is high-risk and we will continue close monitoring. Thank you for the consult. Job ID: [id number] MTDD
[2018-01-29 06:18] LABS: #Basophils 0.1 thou/uL (0.0-0.2); #Eosinphils 0.1 thou/uL (0.0-0.7); #Lymphocytes 1.7 thou/uL (1.20-3.40); #Monocytes 0.9 thou/uL (0.11-0.59); #Neutrophils 7.1 thou/uL (1.40-6.50); %Basophils 0.8 % (0.0-1.0); %Eosinophils 1.2 % (0.0-10.0); %Lymphocytes 17.6 % (21.0-51.0); %Monocytes 8.7 % (0.0-10.0); %Neutrophils 71.8 % (42.0-75.0); Hemoglobin 13.7 g/dL (12.0-16.0); Mean Corpuscular HGB CONC 31.5 g/dL (32.0-36.0); Mean Corpuscular Hemoglobin 26.4 pg (27.0-31.0); Mean Platelet Volume 7.8 fL (7.4-10.4); Platelet Count 176 thou/uL (130-400); RBC Distribution Width 16.1 % (11.5-14.5); Red Blood Cell (RBC) Count 5.18 mill/uL (4.20-5.40); White Blood Cell (WBC) Count 9.9 thou/uL (4.8-10.8)
[2018-01-29 06:39] LABS: ALT (SGPT) 15 U/L (8-55); AST (SGOT) 17 U/L (5-34); Albumin 3.2 g/dL (3.5-5.0); Alkaline Phosphatase 52 U/L (40-150); Anion Gap 17 mmol/L (10-20); BUN (Urea Nitrogen) 24 mg/dL (7.0-18.7); Bilirubin, Total 0.5 mg/dL (0.2-1.2); Calc. Creatinine Clearance 26 mL/min (70-130); Calcium 10.2 mg/dL (7.8-10.44); Carbon Dioxide 27 mmol/L (22-29); Chloride 98 mmol/L (98-107); Estimated GFR-MDRD 9; Globulin 3.7 g/dL (2.4-3.5); Glucose 65 mg/dL (70-105); Potassium 4.9 mmol/L (3.5-5.1); Protein, Total 6.9 g/dL (6.0-8.3); Sodium 137 mmol/L (136-145)
--- NOTE | 2018-01-29 10:36 | PDOC.APC ---
Antepartum Consult XIANG CHAVEZ is a 32 year old female at 8 and 5/7 gestational weeks by [facility] yesterday. Admitted yesterday with chest pain by Hospitalists. Dr. Tee saw her and discussed VQ scan for eval. of PE 2* to h/o IV contrast allergy.. Currently sees Dr. Hayes for dialysis. Appears well this AM, in no distress. ME=043/64, P= 109, R=20, Tn= 98.8. No vaginal; bleeding per her report. States she has appointment on of this week with Dr. Ordoñez for OB care.
--- NOTE | 2018-01-29 12:01 | PRG ---
DATE OF SERVICE: 01/29/2018 SUBJECTIVE: A 32-year-old female, being seen for end-stage renal disease. The patient denies any nausea, vomiting, or chest pain. OBJECTIVE: CONSTITUTIONAL: Awake, alert, in no acute distress. VITAL SIGNS: Afebrile, pulse 100, breathing 16, and blood pressure 101/64. GENERAL APPEARANCE AND MENTAL STATUS: Fair. HEAD/NECK: Normocephalic. Atraumatic. EYES: EOMI. No deformity. EARS: Clear. No ulcers. NOSE: Intact. No lesions. MOUTH: Clear. No discharge. THROAT: Clear. No exudate. LUNGS: Clear. No crackles. CARDIAC: S1, S2. No rub. ABDOMEN: Benign. Bowel sounds positive. GENITALIA/RECTUM: Puga absent. BACK/EXTREMITIES: Edema 0+. NEUROLOGICAL: Alert and motor intact. LABORATORY DATA: Hemoglobin 13.7. Potassium 4.0. ASSESSMENT AND PLAN: 1. Stage 6 chronic kidney disease. Plan dialysis tomorrow. 2. Hypertension, stable. 3. Anemia, stable. 4. Medications based on glomerular filtration rate are appropriate. 5. management with OB. 6. The patient has an outpatient appointment setup. Job ID: [id number]
--- NOTE | 2018-01-29 13:16 | PDOC.PN ---
- Subjective Encounter Start Date: 01/29/18 Encounter Start Time: 13:15 Subjective: Patient feeling well with no CP/SOB. -: Sorethroat and pain with swallowing. Afebrile. -: No other complains. No cough. - Objective MAR Reviewed: Yes Vital Signs & Weight: Vital Signs (12 hours) Temp Pulse Resp BP Pulse Ox 01/29/18 11:44 98.2 F 73 16 125/74 96 01/29/18 07:51 98.8 F 109 H 20 121/64 100 01/29/18 05:06 98.2 F 100 16 101/64 98 Weight Weight 297 lb I&O: 01/28/18 01/29/18 01/30/18 06:59 06:59 06:59 Intake Total 970 Balance 970 Result Diagrams: 01/29/18 06:08 01/29/18 06:08 Phys Exam - Physical Examination HEENT: PERRLA, moist MMs, oral pharynx no lesions Neck: no nodes, supple, full ROM Respiratory: no wheezing, no rales, no rhonchi, clear to auscultation bilateral Cardiovascular: RRR Gastrointestinal: soft, non-tender, no distention, positive bowel sounds Musculoskeletal: no edema Neurological: non-focal Lymphatic: no nodes Psychiatric: normal affect, A&O x 3 Skin: no rash, normal turgor, cap refill <2 seconds Dx/Plan (1) Chest pain Code(s): R07.9 - CHEST PAIN, UNSPECIFIED Status: Resolved Plan: Resolved. Awaiting echo and cardiology consult. (2) Suspected pulmonary embolism Code(s): R09.89 - OTH SYMPTOMS AND SIGNS INVOLVING THE CIRC AND RESP SYSTEMS Status: Acute Plan: Bilateral LE US negative. VQ scan declined by patient. She will visit with OB next week to discuss further. (3) ESRD on dialysis Code(s): N18.6 - END STAGE RENAL DISEASE; Z99.2 - DEPENDENCE ON RENAL DIALYSIS Status: Chronic Plan: Continue as per Nephrology. Patient on dialysis. - Plan cont current plan of care * .
--- NOTE | 2018-01-29 13:58 | EKG ---
Test Reason : Blood Pressure : / mmHG Vent. Rate : 117 BPM Atrial Rate : 117 BPM P-R Int : 132 ms QRS Dur : 070 ms QT Int : 336 ms P-R-T Axes : 047 056 024 degrees QTc Int : 468 ms Sinus tachycardia with Fusion complexes Low voltage QRS Septal infarct , age undetermined Abnormal ECG Confirmed by GIAN RAMIREZ D.O. ([id number]), brands editor NIELS HAWK ([id number]) on 01/29/2018 1:58:18 PM Referred By: Confirmed By:GIAN RAMIREZ D.O.
[2018-01-29] MEDS: Famotidine 20 MG TAB PO SCH (20:03)
--- NOTE | 2018-01-29 23:44 | CON ---
DATE OF CONSULT: 01/29/18 Patient is a pleasant 32-year-old woman with a history of inappropriate sinus tachycardia who presents with chest discomfort and dyspnea. The patient was seen several years ago with chest pain. She underwent a cardiac catheterization which revealed normal left ventricular systolic function with normal coronary arteries. The patient also has a history of end-stage renal disease. She has previously undergone a renal transplantation. The patient had been treated by Dr. Frias for inappropriate sinus tachycardia. She had previously been on Corlanor. The patient also has a history of a deep venous thrombosis. The patient was in her usual state of health when she developed mid sternal chest discomfort. This lasted for approximately two hours. She became short of breath. She did not seek medical attenuation. The patient had recurrent chest discomfort the next day during dialysis. She again describes the discomfort as mid sternal associated with marked dyspnea. The patient denies having any present chest discomfort. PAST MEDICAL HISTORY: 1. Inappropriate tachycardia. 2. Asthma. 3. End-stage renal disease. 4. History of DVT. 5. Anxiety. PAST SURGICAL HISTORY: Kidney transplant, AV fistula, peritoneal dialysis catheter. SOCIAL HISTORY: Nonsmoker. FAMILY HISTORY: Positive family history of heart disease. ALLERGIES: Latex and Iodine. MEDICATIONS: See nursing list. REVIEW OF SYSTEMS: Ten point system otherwise unremarkable. No history of bruising or bleeding. PHYSICAL EXAMINATION: GENERAL: This is an obese woman in no acute distress with a blood pressure of 125/76. NECK: Showed no jugular venous distention. LUNGS: Clear to auscultation. HEART: Regular rate and rhythm. Normal S1 and S2 with a I/ systolic flow murmur. ABDOMEN: Distended. EXTREMITIES: Showed trace bilateral edema. VASCULAR: Radial pulses are 2+. LABORATORY RESULTS: White blood count 9.9, hemoglobin 13.7, hematocrit 43.5, platelets 176. Sodium 137, potassium 4.9, chloride 98, bicarbonate 27, BUN 24, creatinine 6.8. Troponin 0.017. EKG reveals sinus tachycardia, otherwise unremarkable EKG. IMPRESSION: 1. Chest pain/dyspnea. 2. History of inappropriate sinus tachycardia. 3. History of normal coronary arteries. 4. End-stage renal disease. 5. History of DVT. 6. Asthma. This patient presents with chest pain and dyspnea. Her EKG shows no acute ischemic changes. Serial Troponin levels reveals no evidence of myocardial infarction. From a cardiac standpoint, there is no evidence that this is secondary to ischemic heart disease or dissection. I would be concerned about her having a pulmonary embolism with her history of a DVT. Would consider anticoagulation therapy. We will follow this patient with you through her hospitalization. ANANT
[2018-01-30 07:54] VITALS: BP 122/86; TEMP 98.2
--- NOTE | 2018-01-30 18:03 | DIS ---
DATE OF ADMISSION: 01/28/2018 DATE OF DISCHARGE: 01/30/2018 CHIEF COMPLAINT: Substernal chest pain. DISCHARGE DIAGNOSES: 1. Possible pulmonary embolus. 2. High-risk , approximately 8 weeks . 3. End-stage renal disease, on dialysis. 4. History of congestive heart failure. CONSULTING PHYSICIANS: 1. Sean Tee MD, Obstetrics. 2. Dr. Umanzor of Perinatology. 3. Keri Santana MD, Nephrology. 4. Dr. Toth of Cardiology. HOSPITAL COURSE: This is a very pleasant 32-year-old woman, who initially presented with substernal chest pain, nonradiating. She had one episode the night prior to coming to the ED on 01/28/2018. This lasted 3 hours and settled on its own. It recurred on the day of presentation while she was undergoing dialysis and was relieved with aspirin. She was admitted for workup of PE and chest pain rule out. ECG was done in the ED that showed sinus tachycardia with fusion complexes, low-voltage QRS, and septal infarct, age undetermined. The patient underwent Doppler ultrasound of lower extremities which was negative for DVT. A D-dimer was done which was elevated. The patient was felt to be high risk for PE and advised to have a V/Q scan given her history as well as known previous DVT. Unfortunately, the patient was alarmed by the radiology receptionist who told her this would harm her baby, therefore she declined. Dr. Tee, OB, had an in-depth discussion with her regarding the risk of PE outweighing her risk to the baby with this study. She continued to have reservations and opted to decline the v/Q scan until discussing further with her OB whom she is scheduled to see on February 02, 2018, for the first time. She agreed to undergo admission for further workup of her chest pain from a cardiac standpoint. Additional studies including a chest x-ray were unremarkable. She underwent a pelvic ultrasound that confirmed an intrauterine , estimated gestational age of eight weeks and four days. An echocardiogram was done showing an ejection fraction of 60% to 65%. She was noted to have [id number] tricuspid regurgitation and a small trivial pericardial effusion with mild elevation in right ventricular systolic pressure. The patient was pain free and with no complaints throughout her entire hospital stay. She did experience reflux which was relieved with Pepcid. She was essentially eating and drinking well without any nausea or vomiting. No abdominal pain. Denies any urinary symptoms. Denies any headaches or dizziness. No fevers, chills, or sweats, and has been ambulating without difficulties. No extremity swelling or calf tenderness. All other review of systems are negative. LABORATORY STUDIES: White blood count 9.9, hemoglobin 13.7, hematocrit 43.4, platelets 126. Sodium 137, potassium 4.9. BUN 24, raised from 14. Due for dialysis. Creatinine 6.86. TnI x3, negative. IMAGING DATA: As mentioned above in hospital course. PROCEDURES: None. DISCHARGE MEDICATIONS: 1. Acetaminophen 325 mg p.o. every 4 hours as needed for pain. 2. Famotidine 20 mg p.o. q.p.m. Prescription provided at time of discharge. The patient has opted to discontinue all other previously prescribed home medications until further discussion with her OB. DISCHARGE CONDITION: Stable. DISCHARGE ACTIVITY: As tolerated. DISCHARGE DIET: Heart healthy, renal diet. FOLLOWUP: The patient is scheduled to see her OB on February 02, 2018, at which time she plans to discuss her recommendations for V/Q scan to rule out PE. She was advised to seek medical attention if symptoms recur or worsen. DISPOSITION: Home on January 30, 2018. Job ID: [id number]
--- NOTE | 2018-01-31 17:23 | EKG ---
Test Reason : Blood Pressure : / mmHG Vent. Rate : 107 BPM Atrial Rate : 107 BPM P-R Int : 150 ms QRS Dur : 076 ms QT Int : 346 ms P-R-T Axes : 029 052 024 degrees QTc Int : 461 ms Sinus tachycardia Possible Left atrial enlargement Low voltage QRS (Limb and precordial leads) Septal infarct , age undetermined (Doubtful) Abnormal ECG Confirmed by LAKESHA KELLEY ([id number]) on 01/31/2018 5:23:07 PM Referred By: LORRAINE Confirmed By:LAKESHA KELLEY
== END 2018-01-30 08:38 | disposition home or self-care (01) ==
LOC: ERS 09:28 → 2SW 15:00
PROVIDERS: ADMIT Internal Medicine Infectious Disease; ATTEND Internal Medicine Infectious Disease
DX: O99.89 Other specified diseases and conditions complicating pregnancy, childbirth and the puerperium (principal); R07.2 Precordial pain; O26.831 Pregnancy related renal disease, first trimester; I13.2 Hypertensive heart and chronic kidney disease with heart failure and with stage 5 chronic kidney disease, or end stage renal disease; I50.9 Heart failure, unspecified; N18.6 End stage renal disease; Z99.2 Dependence on renal dialysis; Z94.0 Kidney transplant status; O99.211 Obesity complicating pregnancy, first trimester; E66.01 Morbid (severe) obesity due to excess calories; O99.411 Diseases of the circulatory system complicating pregnancy, first trimester; O99.341 Other mental disorders complicating pregnancy, first trimester; F41.9 Anxiety disorder, unspecified; F32.9 Major depressive disorder, single episode, unspecified; O99.511 Diseases of the respiratory system complicating pregnancy, first trimester; J45.909 Unspecified asthma, uncomplicated; Z86.718 Personal history of other venous thrombosis and embolism; Z91.040 Latex allergy status; Z91.09 Other allergy status, other than to drugs and biological substances; Z3A.08 8 weeks gestation of pregnancy; Z98.890 Other specified postprocedural states; Z79.899 Other long term (current) drug therapy
CPT/HCPCS: 71045; 76856; 80053 ×2; 83880; 84484 ×2; 84702; 85025 ×2; 85379; 85610; 85730; 93005 ×2; 93306; 93970; 93976; 94760; 99285; G0378 ×2; 36415; 93010

== ENCOUNTER 2018-06-08 10:54 | Observation (INO) | payer MEDICARE, MEDICAID ==
[2018-06-08] MEDS ORDERED: ISOVUE-370 76%-LOCM 1 ML ONE (11:02)
[2018-06-08 11:26] LABS: #Basophils 0.1 thou/uL (0.0-0.2); #Eosinphils 0.1 thou/uL (0.0-0.7); #Lymphocytes 2.7 thou/uL (1.20-3.40); #Monocytes 0.7 thou/uL (0.11-0.59); #Neutrophils 6.6 thou/uL (1.40-6.50); %Basophils 1.2 % (0.0-1.0); %Eosinophils 0.7 % (0.0-10.0); %Lymphocytes 26.8 % (21.0-51.0); %Monocytes 6.9 % (0.0-10.0); %Neutrophils 64.5 % (42.0-75.0); Hemoglobin 11.6 g/dL (12.0-16.0); Mean Corpuscular HGB CONC 31.6 g/dL (32.0-36.0); Mean Corpuscular Hemoglobin 24.9 pg (27.0-31.0); Mean Platelet Volume 7.2 fL (7.4-10.4); Platelet Count 306 thou/uL (130-400); Red Blood Cell (RBC) Count 4.66 mill/uL (4.20-5.40); White Blood Cell (WBC) Count 10.2 thou/uL (4.8-10.8)
[2018-06-08 11:38] LABS: BHCG - Serum Negative (NEGATIVE); Pregs Control Background? CLEAR/WHITE (CLR/WHITE); Pregs Control Bar Appear? YES (CONTROL BAR)
[2018-06-08 12:05] LABS: Acetaminophen Less than 6.0 mcg/mL (10.0-30.0); Alcohol Less than 10 mg/dL (Less than 10); Salicylate Less than 8.0 mg/dL (15.0-30.0)
[2018-06-08 12:07] LABS: ALT (SGPT) 14 U/L (8-55); AST (SGOT) 16 U/L (5-34); Albumin 3.9 g/dL (3.5-5.0); Alkaline Phosphatase 96 U/L (40-150); Anion Gap 15 mmol/L (10-20); BUN (Urea Nitrogen) 22 mg/dL (7.0-18.7); Bilirubin, Total 0.5 mg/dL (0.2-1.2); CK (CPK) 56 U/L (29-168); Calc. Creatinine Clearance 0 mL/min (70-130); Calcium 9.9 mg/dL (7.8-10.44); Carbon Dioxide 31 mmol/L (22-29); Chloride 94 mmol/L (98-107); Estimated GFR-MDRD 9; Glucose 80 mg/dL (70-105); Potassium 3.6 mmol/L (3.5-5.1); Protein, Total 7.9 g/dL (6.0-8.3); Sodium 136 mmol/L (136-145)
[2018-06-08] MEDS ORDERED: diphenhydrAMINE 50 MG/ML VIAL ONE (13:31)
[2018-06-08] MEDS ORDERED: Famotidine/PF 20 mg/2ml Vial ONE (13:31)
[2018-06-08] MEDS ORDERED: methylPREDNISolone Sod Succ/PF 125 MG/2 ML VIAL ONE (13:31)
--- NOTE | 2018-06-08 14:45 | CT ---
CT PULMONARY ANGIOGRAM WITH IV CONTRAST AND 3D POST PROCESSING: HISTORY: Chest pain. COMPARISON: 03/24/2017 FINDINGS: No filling defects are seen in the contrast opacified pulmonary arterial vasculature to suggest pulmo nary embolism. No aneurysm of the thoracic aorta is seen. No pleural or pericardial effusions are i dentified. The conglomerate of about three tiny nodules in the left upper lobe is better seen on the previous st udy and has a somewhat ground glass appearance on the current exam. Additional patchy ground glass o pacities are seen in the lower lung keyes. There are degenerative changes in the spine. IMPRESSION: No CT evidence of pulmonary embolism. POS: OFF
[2018-06-08] MEDS ORDERED: Aspirin Chewable 81 MG TAB ONE (15:59)
[2018-06-08] MEDS ORDERED: Ondansetron PF 4 MG/2 ML Vial IVP PRN (20:28)
[2018-06-08] MEDS ORDERED: Acetaminophen 325 MG TAB PO PRN (20:28)
[2018-06-08] MEDS ORDERED: Ondansetron ODT 4 MG TAB SL PRN (20:28)
[2018-06-08 20:48] VITALS: BMI 45.7
[2018-06-08] MEDS ORDERED: Acetaminophen/Codeine 30-300mg Tablet PO PRN (20:56)
[2018-06-08] MEDS ORDERED: traMADol HCl 50 MG TAB PO PRN (21:57)
--- NOTE | 2018-06-08 23:04 | HP ---
PRIMARY CARE DOCTOR: Dr. Gwen Lane. CODE STATUS: Full code. TIME OF EVALUATION: 09:45 p.m. CHIEF COMPLAINT: Syncope. HISTORY OF PRESENT ILLNESS: This is a 33-year-old female patient with past medical history of diabetes, history of DVT/PE. The patient also has a history of end-stage renal disease, on hemodialysis. The patient has unfortunately had kidney failure when she was 16 years old, got kidney transplant from her father that lasted for 5 years and now is again on dialysis. The patient reported that she got dialysis today and before she was getting ready to go to leave, the patient developed dizziness and had sudden loss of consciousness and was brought into the hospital. The patient follows with Dr. Carmona. She stated that she has had in the past few months multiple episodes of syncope that she has a prodromic syndrome where she feels lightheaded and feels like she is going to pass out and after that she does sit down really quickly and she might have loss of consciousness. She has reported that she has followed with Dr. Frias in the past and she was due for an evaluation with him, we will consult him. For the syncope, the patient had stress test done in the past year in [facility], it would be worth to have those results and lab testing. The symptoms were sudden, were severe with loss of consciousness and no clear triggers. No alleviating factors. Initially thought to be related to volume balance after dialysis. However, the patient has reported that at the dialysis center, she usually get about the same amount of volume and that she has noticed that the episode of syncope is not related all the time with the dialysis. We will monitor here on tele. REVIEW OF SYSTEMS: CONSTITUTIONAL: No fever, chills, or generalized weakness. RESPIRATORY: No cough, sputum production, or shortness of breath. CARDIOVASCULAR: No chest pain or palpitations. GASTROINTESTINAL: No nausea, no vomiting, diarrhea, or abdominal pain. HOME HEALTH OCCUPATIONAL THERAPIST: The patient had an episode of syncope. No headache. She does feel dizzy and lightheaded prior to having episode of syncope. GENITOURINARY: No burning on urination. EXTREMITIES: No leg swelling. All other systems were reviewed and negative except for the findings mentioned above. FAMILY HISTORY: Reviewed. The patient has mother with remote for arthritis and breast cancer. The father is healthy. PAST MEDICAL HISTORY: As mentioned in HPI. SURGICAL HISTORY: Kidney transplant in 2004 and left arm dialysis AV fistula, multiple catheter placements. PSYCHIATRIC HISTORY: Anxiety and depression. SOCIAL HISTORY: No alcohol. No drugs. No smoking history. Lives at home alone. ALLERGIES: KNOWN ALLERGIES TO IODINE, LATEX GLOVES. REPORTED MEDICATIONS: Parenteral heparin. PHYSICAL EXAMINATION: VITAL SIGNS: On presentation, blood pressure 118/81, heart rate 106, respiratory rate was 13, temperature 97.9, pain 0/10, oxygen saturation was 96% on room air. GENERAL APPEARANCE: The patient is alert, oriented, not in any acute distress. Still reporting some generalized weakness. HEENT: Eyes, normal conjunctiva. Moist oral mucosa. Anicteric. No JVD. RESPIRATORY: Bilateral air entry. No rales. No wheezes. Symmetric expansion. CARDIOVASCULAR: Normal rate, regular rhythm. No murmurs. No gallop. No edema. ABDOMEN: Soft. Normal bowel sounds. MUSCULOSKELETAL: Baseline range of motion and strength. No tenderness. SKIN: Warm, intact. No pallor. No rash. No redness. Peripheral pulses are present. Capillary refill seems to be intact. NEUROLOGIC: No evidence of any new focal weakness. Baseline speech. Cranial nerves seem to be intact. PSYCHIATRIC: The patient is in good mood. No anxiety. Optimal judgment. LABORATORY DATA: EKG was reviewed. The patient has sinus tachycardia at a rate of [address] 146, QRS 82, QT corrected 488. Low-voltage QRS, possible left atrial enlargement. Chest CTA was done. The patient has no CTA evidence of pulmonary embolism. No pericardial effusion. LABORATORY DATA: Reviewed. The patient has white count 10.2, hemoglobin 11.6, MCV is 79, platelet count 306. Chemistry; sodium 136, potassium 3.6, chloride 94, carbon dioxide 31, anion gap 15, BUN 22 with creatinine 6.74, GFR of 9. Lactic acid was normal. LFTs were negative. Troponin was normal. ASSESSMENT AND PLAN: The patient will be placed in the hospital with following medical problems; 1. Syncope of unclear etiology, initially thought to be related to volume balance after dialysis, however, the patient reported having syncope episode multiple times, not related to dialysis. This has been going on for the past few months. We will consult Dr. Frias who has seen the patient in the past. The patient had previous stress test done in [facility] that we will obtain, also recent echo. We will defer to Cardiology any further plan. 2. End-stage renal disease, on hemodialysis. The patient follows with Dr. Carmona. Dr. Carmona is seeing the patient while in the hospital. We will follow recommendation from Nephrology. Might need hemodialysis as inpatient if the patient remains here. 3. Morbid obesity. Advised to lose weight. 4. Deep venous thrombosis prophylaxis. Job ID: [id number]
[2018-06-09 04:56] LABS: #Lymphocytes 0.9 thou/uL (1.20-3.40); #Monocytes 0.3 thou/uL (0.11-0.59); #Neutrophils 8.2 thou/uL (1.40-6.50); %Basophils 0.2 % (0.0-1.0); %Eosinophils 0.3 % (0.0-10.0); %Lymphocytes 9.6 % (21.0-51.0); %Monocytes 2.9 % (0.0-10.0); %Neutrophils 87.1 % (42.0-75.0); Hemoglobin 10.9 g/dL (12.0-16.0); Mean Corpuscular HGB CONC 31.6 g/dL (32.0-36.0); Mean Platelet Volume 7.3 fL (7.4-10.4); Platelet Count 302 thou/uL (130-400); RBC Distribution Width 15.8 % (11.5-14.5); Red Blood Cell (RBC) Count 4.37 mill/uL (4.20-5.40); White Blood Cell (WBC) Count 9.4 thou/uL (4.8-10.8)
[2018-06-09 05:20] LABS: Anion Gap 18 mmol/L (10-20); BUN (Urea Nitrogen) 40 mg/dL (7.0-18.7); Calc. Creatinine Clearance 18 mL/min (70-130); Calcium 10.4 mg/dL (7.8-10.44); Carbon Dioxide 27 mmol/L (22-29); Chloride 94 mmol/L (98-107); Estimated GFR-MDRD 6; Glucose 155 mg/dL (70-105); Potassium 4.8 mmol/L (3.5-5.1); Sodium 134 mmol/L (136-145)
[2018-06-09] MEDS ORDERED: Acetaminophen 325 MG TAB PO PRN (06:37)
[2018-06-09] MEDS ORDERED: Ondansetron ODT 4 MG TAB PO PRN (06:37)
[2018-06-09] MEDS ORDERED: Ondansetron PF 4 MG/2 ML Vial IVP PRN (06:37)
[2018-06-09] MEDS: Prenatal Vitamin 1 TAB PO SCH (08:59)
[2018-06-09] MEDS: Sevelamer Carbonate 800 MG TAB PO SCH ×4 (08:59→18:31)
[2018-06-09] MEDS: Heparin 5,000 UNITS/ML VIAL SC SCH ×3 (09:02→22:03)
--- NOTE | 2018-06-09 11:57 | PRG ---
DATE OF SERVICE: 06/09/2018 SUBJECTIVE: A 33-year-old female being seen for end-stage renal disease. The patient denied nausea, vomiting, or chest pain. OBJECTIVE: CONSTITUTIONAL: The patient is awake and alert. VITAL SIGNS: Afebrile. Pulse 85, breathing 16, and blood pressure 135/77. GENERAL APPEARANCE AND MENTAL STATUS: Fair. HEAD/NECK: Normocephalic. Atraumatic. EYES: EOMI. No deformity. EARS: Clear. No ulcers. NOSE: Intact. No lesions. MOUTH: Clear. No discharge. THROAT: Clear. No exudate. LUNGS: Clear. No crackles. CARDIAC: S1, S2. No rub. ABDOMEN: Benign. Bowel sounds positive. GENITALIA/RECTUM: Puga absent. BACK/EXTREMITIES: Edema 0+. NEUROLOGICAL: Alert and motor intact. SKIN: LYMPHATICS: LABORATORY DATA: Reviewed. ASSESSMENT AND PLAN: Stage 6 chronic kidney disease. Continue hemodialysis. Hypertension, stable. Anemia, stable. Medication based GFR appropriate. Job ID: [id number]
--- NOTE | 2018-06-09 15:04 | CON ---
DATE OF CONSULTATION: 06/09/2018 REASON FOR CONSULTATION: Syncope. HISTORY OF PRESENT ILLNESS: Ms. Ye is a very pleasant 33-year-old female, who comes to the hospital for having a syncopal spell. She is very well known to myself. I have evaluated her in the past for an inappropriate sinus tachycardia. Her heart rate was also in the 110s to 120s. She had been on beta-blockers in the past and this dropped her blood pressure too much, so this had to be discontinued. At one point, we put on Corlanor and this made her heart rate be in the 90s. She was doing well. However, she has not been taking any of her medications. She is not on any blood pressure medications either. She was on dialysis and had an episode of feeling that somebody was pulling down the curtain. She has had this several times in the last 6 months about twice a month. She feels the same way and she has to sit down, and most of the time, she is able to prevent passing out, but sometimes, she has not been able to. She states that it has even happened twice while she is driving, but she did not completely pass out those two times, she just pulled to the side and eventually felt better. She also had an episode where she was driving. She felt she zoned out and then she woke back up, and she did not know what had happened. Currently, she denies any chest pain, tightness or pressure while she was on dialysis when she had her episode. Her heart rate was in the 90s to low 100s, which is her baseline, and her blood pressure was in 100s to 110s over 60s. PAST MEDICAL HISTORY: 1. End-stage renal disease. 2. History of hypertension. 3. Morbid obesity. 4. Type 2 diabetes. 5. History of failed kidney transplant back on dialysis. 6. History of inappropriate sinus tachycardia. SOCIAL HISTORY: No alcohol, tobacco or drugs. PAST SURGICAL HISTORY: 1. Kidney transplant in 2004. 2. Left arm dialysis fistula. 3. Multiple catheters placement. 4. Left heart catheterization in 2014, which showed normal coronaries. OUTPATIENT MEDICATIONS: 1. Sevelamer. 2. multivitamins. 3. Tramadol. 4. Tylenol No. 3. ALLERGIES: IODINE AND LATEX. FAMILY HISTORY: Noncontributory. REVIEW OF SYSTEMS: A 12-point review of systems was done and found to be negative unless stated in history of present illness. PHYSICAL EXAMINATION: VITAL SIGNS: Temperature 97.8, pulse is 96, respiratory rate 20, sat 98% on room air, and blood pressure 120/94. She is not orthostatic on vital signs. She goes from 123 sitting to 155 standing. She has been as low as 102/58 at rest. GENERAL: Awake, alert, and oriented x3. No distress. HEENT: Normocephalic and atraumatic. NECK: Supple. LUNGS: Clear. CARDIOVASCULAR: S1 and S2. No S3 or S4. No murmurs. ABDOMEN: Soft. Positive bowel sounds. EXTREMITIES: No edema. SKIN: Warm and dry. LABORATORY DATA: Laboratory work was reviewed. CBC with a white count of 9.4, hemoglobin of 10.9, hematocrit of 34, and platelet count of 302. Chemistries were reviewed. Troponin was negative x3. test was negative. Toxicology, plasma alcohol was undetectable. Acetaminophen and salicylates were undetectable. EKG was reviewed. CT of the chest was reviewed. ASSESSMENT/PLAN: 1. Syncope. 2. End-stage renal disease. 3. Inappropriate sinus tachycardia. 4. Noncompliance. 5. End-stage renal disease. PLAN: Concern for the patient becoming orthostatic as she has a prodrome where she feels the episode coming. She has been very hypotensive in the office, on no blood pressure medications. We will plan on giving her a low-dose midodrine and we will have to observe her overnight to see if her blood pressure is going to dramatically come up with this. Otherwise, her episodes of zoning out sometimes would suggest her having a seizure. She actually was very confused yesterday in the ER after her episode, which would not be consistent with just orthostatic hypotension, but more with a seizure and with a postictal state. We will consult Neurology to see what their opinion is. Thank you for letting us to participate in the care of this patient. We will follow. Job ID: [id number]
[2018-06-09] MEDS: Midodrine HCl 5 MG TAB PO SCH ×2 (17:57→22:01)
--- NOTE | 2018-06-09 18:27 | CON ---
DATE OF CONSULTATION: 06/08/2018 REASON FOR CONSULTATION: End-stage kidney disease, on maintenance hemodialysis. HISTORY OF PRESENT ILLNESS: This is a very pleasant 33-year-old female, who at the end of dialysis had a seizure-like episode and altered mental status, was sent to the emergency room for further evaluation. The patient's electrolytes were good and blood pressure was stable. The patient denies headache, numbness, tingling, or weakness. Denies any nausea, vomiting, or chest pain at this time. The patient did have an episode of chest pain. PAST MEDICAL HISTORY: Significant for; 1. End-stage kidney disease. 2. Hypertension. 3. History of kidney transplant in 2004. 4. AV fistula. 5. Multiple catheter placements. 6. History of secondary hyperparathyroidism. 7. History of seizure disorder. 8. History of tricuspid regurgitation. FAMILY HISTORY: Negative for ESRD. ALLERGIES: REVIEWED. HOME MEDICATIONS LIST: Reviewed. REVIEW OF SYSTEMS: A 15-point review of systems was performed and was negative except for positives noted above. GENERAL: HEAD: NECK: No swelling or lumps. NOSE: No epistaxis or discharge. EYES: No diplopia or pain. RESPIRATORY: CARDIOVASCULAR: GASTROINTESTINAL: /SOAKING PIT OPERATOR: MUSCULOSKELETAL: No joint pain. NEUROPSYCHIATIC SYSTEMS: No suicidal ideation. No ideation. SKIN: Denies any rash or ulcer. CONSTITUTIONAL: No fever or chills. PHYSICAL EXAMINATION: GENERAL: The patient is awake and alert. VITAL SIGN: Afebrile, pulse 106, breathing 16, blood pressure 118/81. GENERAL APPEARANCE AND MENTAL STATUS: Fair. HEAD/NECK: Normocephalic. Atraumatic. EYES: EOMI. No deformity. EARS: Clear. No ulcers. NOSE: Intact. No lesions. MOUTH: Clear. No discharge. THROAT: Clear. No exudate. LUNGS: Clear. No crackles. CARDIAC: S1, S2. No rub. ABDOMEN: Benign. Bowel sounds positive. GENITALIA/RECTUM: Puga absent. BACK/EXTREMITIES: Edema 0+. NEUROLOGICAL: Alert and motor intact. SKIN: LYMPHATICS: LABORATORY DATA: Reviewed. ASSESSMENT AND PLAN: 1. Stage II chronic kidney disease. No indication for dialysis today. 2. Hypertension, stable. 3. Anemia, stable. 4. Medication based on GFR appropriate. Job ID: [id number]
--- NOTE | 2018-06-09 19:10 | PRG ---
DATE OF SERVICE: 06/09/2018 TIME OF EVALUATION: 11 a.m. SUBJECTIVE: Ms. Ye is a pleasant 33-year-old female with past medical history significant for end-stage renal disease, status post failed kidney transplant, and now on hemodialysis; history of seizure disorder in the past; and chronic hypotension, who presented to the hospital after suffering a loss of consciousness at dialysis yesterday. The patient does not remember the details regarding the events, but did have some confusion after her arrival at the ER, and did not remember seeing her underwear welter, Dr. Carmona there, although he did evaluate her in the ER. This morning, the patient states that she does feel well. She denies any chest pain or shortness of breath. She denies any nausea or vomiting. She reports that she has had a history of these near syncopal events in the past and begins to feel weak and sometimes, she can have them off by sitting down. OBJECTIVE: VITAL SIGNS: Blood pressure is 123/77, pulse is 108, temperature is 98.4, and O2 saturation is 98% on room air. GENERAL: The patient is a moderately obese female, resting comfortably in no acute distress. HEENT: Head is atraumatic and normocephalic. Mucous membranes are moist. NECK: Supple. Trachea is midline. No JVD. CV: S1 and S2. No appreciable murmurs, rubs, or gallops. Mildly tachycardic. LUNGS: Regular respiratory rate and pattern. Clear to auscultation bilaterally. ABDOMEN: Soft, obese. Positive bowel sounds. Nontender. No organomegaly. EXTREMITIES: No edema. SKIN: Warm and dry. No rashes. AV fistula present in the left forearm. NEUROLOGIC: Cranial nerves 2 through 12 are intact. She is alert and oriented x3. Nonfocal. LABORATORY DATA: Hemoglobin 10.9, hematocrit 34.5, white blood cell count 9.4, and platelets 302. Sodium 134, potassium 4.8, chloride 94, BUN 40, and creatinine 9.35. Troponin negative x3. ASSESSMENT: 1. Presumed syncope/loss of consciousness at presentation, although the patient has history of seizure disorder, and this episode may be consistent with partial seizure and postictal phase. 2. End-stage renal disease, status post failed kidney transplant, on hemodialysis. 3. Obesity. 4. Hypotension. 5. Sinus tachycardia. PLAN: The patient has been seen in consultation with Dr. Frias, who recommends treatment of her hypotension with midodrine. Neurology has been consulted. The patient states that she had been on Trileptal for antiseizure prophylaxis for many years, until she was taken off it a year or two ago. We will get Neurology's recommendations for antiseizure medication. If patient tolerates midodrine, anticipate discharge tomorrow, possibly back on antiseizure medication. The patient's care has been discussed in conjunction with Dr. Cuevas, who agrees with the above. Job ID: [id number]
[2018-06-09] MEDS: levETIRAcetam 500 MG TAB PO SCH (22:01)
--- NOTE | 2018-06-10 00:09 | CON ---
DATE OF CONSULTATION: 06/09/2018 CONSULTING PHYSICIAN: Hospitalist Services. IMPRESSION: 1. Possible complex partial seizures. 2. Orthostatic hypotension. PLAN: 1. Start Keppra 500 mg mg twice a day. 2. Cardiology is planning to start midodrine and perform an echocardiogram. 3. Office followup. HISTORY OF PRESENT ILLNESS: Ms. Ye is an unfortunate 33-year-old woman who suffered kidney failure when she was a teenager. She underwent a transplant, but unfortunately the transplant failed. She has been back on dialysis. She reports that she has had episodes where she develops tunnel vision and she realizes that if she does not sit down, she will collapse. She had an episode during dialysis where she lost her vision and the voices of the people in the dialysis unit were muffled and distant. She was apparently hypotensive and was brought in for evaluation. Cardiology has been consulted. She has a prior history of depression and was reportedly taking Trileptal in the past. This was discontinued sometime back. She has had episodes not associated with dialysis where she loses a piece of time. This is going on for several years. She has not been on any other anticonvulsants prior to this. PAST HISTORY: Otherwise negative. ALLERGIES: IODINE. SOCIAL HISTORY: No tobacco or alcohol use. FAMILY HISTORY: Noncontributory. MEDICATIONS: Medication list was reviewed. REVIEW OF SYSTEMS: Ten-system review of systems is otherwise negative. PHYSICAL EXAMINATION: GENERAL: She is an overweight young woman, sitting at the bedside, in no acute distress. VITAL SIGNS: Reviewed. HEENT: Pupils are equal and reactive. Conjunctivae clear. Oropharynx clear. NECK: Supple. EXTREMITIES: No cyanosis or edema. NEUROLOGIC: She is alert and appropriate. Her speech is fluent and clear. Exam was nonfocal. No abnormal movements were seen. She can walk independently. SUMMARY: This is a young woman with history of episodes consistent with complex partial seizures. I would go ahead and start her on Keppra, which would be easier than trying to restart Trileptal. I would be happy to follow up with her as an outpatient. Job ID: [id number]
[2018-06-10] MEDS: Midodrine HCl 5 MG TAB PO SCH (09:28)
[2018-06-10] MEDS: Sevelamer Carbonate 800 MG TAB PO SCH (09:28)
[2018-06-10] MEDS: levETIRAcetam 500 MG TAB PO SCH (09:28)
[2018-06-10] MEDS: Prenatal Vitamin 1 TAB PO SCH (09:28)
[2018-06-10] MEDS: Heparin 5,000 UNITS/ML VIAL SC SCH (09:30)
[2018-06-10 11:49] VITALS: BP 133/87; TEMP 97.6
--- NOTE | 2018-06-10 12:16 | PRG ---
DATE OF SERVICE: 06/10/2018 SUBJECTIVE: This is a 33-year-old female being seen for end-stage kidney disease. The patient denied nausea, vomiting, or chest pain. OBJECTIVE: CONSTITUTIONAL: The patient is awake and alert. VITAL SIGNS: Afebrile. Pulse 88, breathing 16, blood pressure 133/82. GENERAL APPEARANCE AND MENTAL STATUS: Fair. HEAD/NECK: Normocephalic. Atraumatic. EYES: EOMI. No deformity. EARS: Clear. No ulcers. NOSE: Intact. No lesions. MOUTH: Clear. No discharge. THROAT: Clear. No exudate. LUNGS: Clear. No crackles. CARDIAC: S1, S2. No rub. ABDOMEN: Benign. Bowel sounds positive. GENITALIA/RECTUM: Puga absent. BACK/EXTREMITIES: Edema 0+. NEUROLOGICAL: Alert and motor intact. SKIN: LYMPHATICS: LABORATORY DATA: Labs show hemoglobin of 10.9. ASSESSMENT AND PLAN: 1. Stage 6 chronic kidney disease, stable. 2. Hypertension, stable. 3. Anemia, stable. 4. Medication based on GFR appropriate. Job ID: [id number]
--- NOTE | 2018-06-11 02:06 | DIS ---
DATE OF ADMISSION: 06/08/2018 DATE OF DISCHARGE: 06/10/2018 ALLERGIES: IODINE AND IODINE CONTAINING PRODUCTS, AND LATEX. CHIEF COMPLAINT: Syncope. FINAL DIAGNOSES: 1. Loss of consciousness, which was presumed syncope at presentation, although postictal phase points to complex partial seizures. 2. Known seizure disorder. 3. End-stage renal disease, status post failed kidney transplant, back on hemodialysis, followed by Dr. Carmona. 4. Obesity. 5. Chronic hypotension, patient initiated on midodrine during this hospitalization. 6. Inappropriate sinus tachycardia. PROCEDURES PERFORMED: None. LABORATORY RESULTS: White blood cell count 9.4, hemoglobin 10.9, hematocrit 34.5, platelet count 302. Sodium 134, potassium 4.8, anion gap 18, BUN 40, creatinine 9.35, glucose 155. Troponin 0.01, 0.02, 0.019. AST, ALT, and alkaline phosphatase are all within normal limits. IMAGING RESULTS: CTA of the chest performed on June 08, 2018, showed no CT evidence of pulmonary embolism. CONSULTATIONS: 1. Nephrology consultation, Dr. Carmona. 2. Neurology consultation, Dr. Rivera. VITAL SIGNS: Blood pressure 104/56, pulse is 97, O2 saturation is 95% on room air, respirations 16, the patient is afebrile, temp 98.2. HOSPITAL COURSE: The patient is a pleasant 33-year-old, female with past medical history significant for end-stage renal disease, status post failed kidney transplant, now on hemodialysis, history of seizure disorder, and chronic hypotension, and sinus tachycardia, who presented to the hospital after suffering a loss of consciousness at dialysis. The patient reports a sensation of developing tunnel vision, and realizes that if she does not sit down, she will faint. She has had these episodes in the past, and has managed not to completely lose consciousness. At dialysis, she cannot remember the exact details of the event, she cannot remember if she was trying to get up out of the chair or if she was seated in the chair, but she did develop tunneled vision and racing heart, and suffered a brief loss of consciousness. She was hypotensive at dialysis, and so she was brought to our facility for further workup and treatment. When in the ER, the patient did see Dr. Carmona, but the patient seemed confused and did not remember the encounter the next day. Dr. Frias, her primary wad lubricator, was consulted, and due to her chronic hypotension, started midodrine 2.5 mg t.i.d., which the patient tolerated well. She was also seen in conjunction with Dr. Rivera, who recommended initiation of Keppra 500 mg b.i.d. for her possible complex partial seizures. The patient had a history of what appeared to be maybe absence seizures in the past and was on Trileptal for many years until she was told to stop this medication in 2017. The patient quickly recovered from her spell, and felt well the following day. She denied any nausea or vomiting. She ambulated without issue. She is tolerating her new medications without issue. Dr. Hayes also recommended that he would increase her dry weight to avoid any orthostatic hypotension, which the patient has had in the past. PHYSICAL EXAMINATION: GENERAL: The patient is moderately obese, female, resting comfortably in bed, in no acute distress. HEENT: Head is atraumatic and normocephalic. Mucous membranes are moist. NECK: Supple. Trachea is midline. No JVD. No carotid bruits. CV: S1 and S2. No appreciable murmurs, rubs, or gallops, mildly tachycardic with regular rhythm. LUNGS: Regular respiratory rate and pattern. Clear to auscultation bilaterally. ABDOMEN: Soft, obese, positive bowel sounds. Nontender. No organomegaly. EXTREMITIES: No edema. SKIN: Warm and dry. No rashes. AV fistula present in the left forearm. NEUROLOGIC: Cranial nerves II through XII intact. She is alert and oriented x3. Nonfocal. CONDITION AT DISCHARGE: Stable. DISCHARGE MEDICATIONS: The patient will continue her home medications which include, 1. Tylenol No: 3, one tablet p.o. q.6 hours pain. 2. Ferrous sulfate. 3. Folic acid supplement one tablet daily. 4. Renvela 1600 mg p.o. t.i.d. 5. Tramadol 50 mg p.o. q.6 hours p.r.n. pain. New medications will be, 1. Keppra 500 mg p.o. b.i.d. 2. Midodrine 2.5 mg p.o. t.i.d. DISCHARGE DISPOSITION: Home with outpatient dialysis. PLAN: The patient will be discharged home in good condition. She has no complaints today and her presenting symptoms have resolved. She will go to outpatient dialysis as scheduled. She will continue to follow with Dr. Hayes as well as Dr. Frias. She will also follow in the outpatient setting with Dr. Rivera regarding her seizure disorder. The care of this patient has been discussed with Dr. Rodríguez, who also saw the patient. Job ID: [id number]
== END 2018-06-10 11:45 | disposition left against medical advice (07) ==
LOC: ERS 10:54 → 2SW 16:20
PROVIDERS: ADMIT Internal Medicine; ATTEND Internal Medicine
DX: I95.1 Orthostatic hypotension (principal); I12.0 Hypertensive chronic kidney disease with stage 5 chronic kidney disease or end stage renal disease; E11.22 Type 2 diabetes mellitus with diabetic chronic kidney disease; N18.6 End stage renal disease; D63.1 Anemia in chronic kidney disease; N25.81 Secondary hyperparathyroidism of renal origin; F41.9 Anxiety disorder, unspecified; F32.9 Major depressive disorder, single episode, unspecified; R41.82 Altered mental status, unspecified; G40.909 Epilepsy, unspecified, not intractable, without status epilepticus; I07.1 Rheumatic tricuspid insufficiency; E66.01 Morbid (severe) obesity due to excess calories; Z68.42 Body mass index [BMI] 45.0-49.9, adult; Z99.2 Dependence on renal dialysis; Z91.040 Latex allergy status; Z91.041 Radiographic dye allergy status; Z94.0 Kidney transplant status; Z79.899 Other long term (current) drug therapy
CPT/HCPCS: 71275; 80048; 80053; 80307; 82550; 82962; 83605; 84484 ×2; 84703; 85025 ×2; 93005; 96374; 96375; 99285; G0378 ×2; 36415; 36416; J1200; J1644; J2930; Q0162; Q9966; S0028

== ENCOUNTER 2018-09-19 11:55 | Emergency (ER) | payer MEDICARE, MEDICAID ==
[2018-09-19] MEDS ORDERED: Albuterol Sulfate 2.5 mg/3 ml Neb ONE (12:26)
[2018-09-19 12:40] LABS: #Lymphocytes 0.8 thou/uL (1.20-3.40); #Monocytes 0.4 thou/uL (0.11-0.59); #Neutrophils 12.7 thou/uL (1.40-6.50); %Basophils 0.1 % (0.0-1.0); %Eosinophils 0.3 % (0.0-10.0); %Lymphocytes 5.8 % (21.0-51.0); %Neutrophils 90.8 % (42.0-75.0); Hemoglobin 10.1 g/dL (12.0-16.0); Mean Corpuscular HGB CONC 31.1 g/dL (32.0-36.0); Mean Corpuscular Hemoglobin 23.7 pg (27.0-31.0); Mean Corpuscular Volume 76.4 fL (78.0-98.0); Mean Platelet Volume 7.4 fL (7.4-10.4); Platelet Count 240 thou/uL (130-400); RBC Distribution Width 15.8 % (11.5-14.5); Red Blood Cell (RBC) Count 4.27 mill/uL (4.20-5.40); White Blood Cell (WBC) Count 13.9 thou/uL (4.8-10.8)
[2018-09-19 13:00] LABS: ALT (SGPT) 11 U/L (8-55); AST (SGOT) 12 U/L (5-34); Alkaline Phosphatase 159 U/L (40-150); Anion Gap 17 mmol/L (10-20); BUN (Urea Nitrogen) 31 mg/dL (7.0-18.7); Bilirubin, Total 0.7 mg/dL (0.2-1.2); Calc. Creatinine Clearance 0 mL/min (70-130); Calcium 9.4 mg/dL (7.8-10.44); Carbon Dioxide 32 mmol/L (22-29); Chloride 95 mmol/L (98-107); Estimated GFR-MDRD 8; Globulin 3.4 g/dL (2.4-3.5); Glucose 123 mg/dL (70-105); Potassium 4.3 mmol/L (3.5-5.1); Protein, Total 7.4 g/dL (6.0-8.3); Sodium 140 mmol/L (136-145)
--- NOTE | 2018-09-19 13:07 | RAD ---
Chest 2 views HISTORY: Dyspnea. COMPARISON: 01/28/2018. FINDINGS: Cardiac silhouette is unremarkable. Pulmonary vasculature accentuated by shallow inspiratio n. Mild atelectasis at the left base. Mediastinum is midline. No lobar consolidation or evidence of pneumothorax. IMPRESSION: No active cardiopulmonary abnormalities are demonstrated.
== END 2018-09-19 13:41 | disposition home or self-care (01) ==
LOC: ERS 11:55
DX: J45.901 Unspecified asthma with (acute) exacerbation (principal); I50.9 Heart failure, unspecified; N18.6 End stage renal disease; J45.909 Unspecified asthma, uncomplicated; F41.9 Anxiety disorder, unspecified; F31.9 Bipolar disorder, unspecified; Z99.2 Dependence on renal dialysis
CPT/HCPCS: 36415; 71046; 80053; 83880; 84484; 85025; 93005; 94640; J7611

== ENCOUNTER 2019-03-22 17:19 | Emergency (ER) | payer MEDICARE, MEDICAID ==
[2019-03-22 18:26] LABS: #Basophils 0.1 thou/uL (0.0-0.2); #Lymphocytes 2.1 thou/uL (1.20-3.40); #Monocytes 0.5 thou/uL (0.11-0.59); #Neutrophils 5.2 thou/uL (1.40-6.50); %Basophils 1.1 % (0.0-1.0); %Eosinophils 0.6 % (0.0-10.0); %Lymphocytes 26.9 % (21.0-51.0); %Monocytes 6.4 % (0.0-10.0); %Neutrophils 64.9 % (42.0-75.0); Hemoglobin 12.2 g/dL (12.0-16.0); Mean Corpuscular HGB CONC 32.2 g/dL (32.0-36.0); Mean Corpuscular Hemoglobin 24.8 pg (27.0-31.0); Mean Corpuscular Volume 77.1 fL (78.0-98.0); Mean Platelet Volume 7.8 fL (7.4-10.4); Platelet Count 297 thou/uL (130-400); RBC Distribution Width 15.6 % (11.5-14.5); Red Blood Cell (RBC) Count 4.92 mill/uL (4.20-5.40)
[2019-03-22] MEDS ORDERED: Ondansetron PF 4 MG/2 ML Vial ONE (18:28)
[2019-03-22] MEDS ORDERED: Morphine 4 MG/ML VIAL ONE (18:28)
[2019-03-22 18:50] LABS: ALT (SGPT) 13 U/L (8-55); AST (SGOT) 8 U/L (5-34); Albumin 3.8 g/dL (3.5-5.0); Alkaline Phosphatase 71 U/L (40-110); Anion Gap 20 mmol/L (10-20); BUN (Urea Nitrogen) 69 mg/dL (7.0-18.7); Bilirubin, Total 0.8 mg/dL (0.2-1.2); Calc. Creatinine Clearance 0 mL/min (70-130); Calcium 9.7 mg/dL (7.8-10.44); Carbon Dioxide 30 mmol/L (22-29); Chloride 94 mmol/L (98-107); Estimated GFR-MDRD 3; Globulin 3.9 g/dL (2.4-3.5); Glucose 97 mg/dL (70-105); Potassium 4.5 mmol/L (3.5-5.1); Protein, Total 7.7 g/dL (6.0-8.3); Sodium 139 mmol/L (136-145)
--- NOTE | 2019-03-22 19:13 | ULT ---
US Ext Art Graft Upr Uni History: Fistula pain Comparison: None. Findings: Real-time grayscale, color, and spectral analysis of the left upper extremity fistula was p erformed. The fistula is patent with high venous flow. No thrombosis. Possible narrowing at the venous outflow tract. Impression: Patent fistula with possible narrowing at the venous outflow tract. Nonemergent fistulogr am recommended if clinically warranted.
== END 2019-03-22 23:03 | disposition home or self-care (01) ==
LOC: ERS 17:19
DX: I72.8 Aneurysm of other specified arteries (principal); Q27.31 Arteriovenous malformation of vessel of upper limb; J45.909 Unspecified asthma, uncomplicated; N18.6 End stage renal disease; F41.9 Anxiety disorder, unspecified; F31.9 Bipolar disorder, unspecified; Z99.2 Dependence on renal dialysis; Z94.0 Kidney transplant status; Z79.899 Other long term (current) drug therapy
CPT/HCPCS: 36415; 80053; 83605; 85025; 87040; 93005; 93931; 96365; 96375; J2270; J2405; J3370

== ENCOUNTER 2019-12-25 11:47 | Emergency (ER) | payer MEDICARE, MEDICAID ==
[2019-12-25] MEDS ORDERED: Metoprolol Tartrate 5 MG/5 ML VIAL ONE ×2 (12:10→13:17)
[2019-12-25 12:39] LABS: #Eosinphils 0.2 thou/uL (0.0-0.7); #Lymphocytes 2.3 thou/uL (1.20-3.40); #Monocytes 0.4 thou/uL (0.11-0.59); #Neutrophils 9.1 thou/uL (1.40-6.50); %Basophils 0.3 % (0.0-1.0); %Eosinophils 1.3 % (0.0-10.0); %Lymphocytes 19.2 % (21.0-51.0); %Monocytes 3.7 % (0.0-10.0); %Neutrophils 75.5 % (42.0-75.0); Hemoglobin 13.2 g/dL (12.0-16.0); Mean Corpuscular HGB CONC 32.3 g/dL (32.0-36.0); Mean Corpuscular Hemoglobin 26.2 pg (27.0-31.0); Mean Corpuscular Volume 80.9 fL (78.0-98.0); Mean Platelet Volume 7.6 fL (7.4-10.4); Platelet Count 312 thou/uL (130-400); RBC Distribution Width 13.9 % (11.5-14.5); Red Blood Cell (RBC) Count 5.06 mill/uL (4.20-5.40); White Blood Cell (WBC) Count 12.1 thou/uL (4.8-10.8)
[2019-12-25] MEDS ORDERED: Acetaminophen 500 MG TAB ONE (12:41)
--- NOTE | 2019-12-25 12:54 | RAD ---
XR Chest 1 View Portable History: Tachycardia Comparison: Radiograph April 03, 2019 Findings: Lungs are clear. A pneumothorax or effusion. Cardiac silhouette and mediastinal contours ar e within normal limits. Moderate degenerative changes both acromioclavicular joints with distal clavicular erosions and capsular calcifications. Impression: No acute intrathoracic abnormality.
[2019-12-25 12:59] LABS: ALT (SGPT) 9 U/L (8-55); AST (SGOT) 11 U/L (5-34); Alkaline Phosphatase 88 U/L (40-110); Anion Gap 21 mmol/L (10-20); BUN (Urea Nitrogen) 37 mg/dL (7.0-18.7); Bilirubin, Total 0.7 mg/dL (0.2-1.2); CK (CPK) 59 U/L (29-168); Calc. Creatinine Clearance 0 mL/min (70-130); Calcium 10.1 mg/dL (7.8-10.44); Carbon Dioxide 31 mmol/L (22-29); Chloride 93 mmol/L (98-107); Estimated GFR-MDRD 7; Globulin 4.9 g/dL (2.4-3.5); Glucose 82 mg/dL (70-105); Magnesium 2.1 mg/dL (1.6-2.6); Potassium 4.2 mmol/L (3.5-5.1); Protein, Total 8.9 g/dL (6.0-8.3); Sodium 141 mmol/L (136-145)
[2019-12-25 13:17] LABS: Thyroid Stimulating Hormone 1.2693 uIU/mL (0.35-4.94)
[2019-12-25 13:35] LABS: BHCG - Serum Negative (NEGATIVE); Pregs Control Background? CLEAR/WHITE (CLR/WHITE); Pregs Control Bar Appear? YES (CONTROL BAR)
== END 2019-12-25 14:31 | disposition home or self-care (01) ==
LOC: ERS 11:47
DX: R00.0 Tachycardia, unspecified (principal); Z79.899 Other long term (current) drug therapy; I50.9 Heart failure, unspecified; J45.909 Unspecified asthma, uncomplicated; F32.9 Major depressive disorder, single episode, unspecified; F41.9 Anxiety disorder, unspecified
CPT/HCPCS: 71045; 80053; 82550; 83735; 84443; 84484; 84703; 85025; 93005; 94760; 96374; 96376

== ENCOUNTER 2020-06-19 09:21 | Outpatient (CLI) | payer MEDICARE, MEDICAID | END 2020-06-19 09:22 | disposition home or self-care (01) | LOC: BICRAD 09:21 | PROVIDERS: ATTEND Nurse Practitioner Family | DX: R05 Cough (principal); R91.8 Other nonspecific abnormal finding of lung field | CPT/HCPCS: 71046 ==

== ENCOUNTER 2024-01-14 12:14 | Emergency (ER) | payer MEDICARE, MEDICAID ==
[2024-01-14] MEDS ORDERED: Sterile Water 0 ML ONE (13:01)
[2024-01-14] MEDS ORDERED: Acetaminophen 500 MG TAB ONE (13:01)
[2024-01-14] MEDS ORDERED: methylPREDNISolone Sod Succ/PF 125 MG/2 ML VIAL ONE (13:01)
[2024-01-14] MEDS ORDERED: diphenhydrAMINE 50 MG/ML VIAL ONE (13:15)
[2024-01-14] MEDS ORDERED: Famotidine/PF 20 mg/2ml Vial ONE (13:15)
[2024-01-14] MEDS ORDERED: Aspirin Chewable 81 MG TAB ONE (13:15)
[2024-01-14 13:18] LABS: #Basophils 0.03 10x3/uL (0.0-0.2); #Eosinophils Less than 0.03 10x3/uL (0.0-0.7); %Basophils 0.2 % (0.0-1.0); %Eosinophils 0.1 % (0.0-10.0); %Lymphocytes 4.9 % (21.0-51.0); %Monocytes 3.1 % (0.0-10.0); %Neutrophils 91.1 % (42.0-75.0); Hematocrit 37.4 % (36.0-47.0); Hemoglobin 12.3 g/dL (12.0-16.0); Mean Corpuscular HGB CONC 32.9 g/dL (32.0-36.0); Mean Corpuscular Hemoglobin 25.3 pg (27.0-31.0); Mean Platelet Volume 8.9 fL (7.4-10.4); Platelet Count 233 10x3/uL (130-400); RBC Distribution Width 14.4 % (11.5-14.5); Red Blood Cell (RBC) Count 4.86 mill/uL (4.20-5.40)
[2024-01-14] MEDS ORDERED: Albuterol 2.5 MG (0.5 mL) NEB ONE (13:21)
[2024-01-14] MEDS ORDERED: Ipratropium Bromide 2.5 ml Neb ONE (13:21)
[2024-01-14 13:23] LABS: Actual Bicarbonate (HCO3v) 22.4 mEq/L (22-28); Analyzer IN Cardio ER; Base Excess 0.6 mEq/L (-2.0 to +3.0); Calcium, Ionized (venous) 1.17 mmol/L (1.16-1.32); Chloride (VBG) 97 mmol/L (98-106); Hematocrit-VBG 36 % (36.0-47.0); Hemoglobin (Hb) 12.4 g/dL (11.7-15.5); Potassium (VBG) 3.58 mmol/L (3.70-5.30); Sodium 139 mmol/L (133-146); pH (venous) 7.524 (7.32-7.43)
[2024-01-14 14:10] LABS: ALT (SGPT) 20 U/L (8-55); AST (SGOT) 19 U/L (5-34); Albumin 3.3 g/dL (3.5-5.0); Alkaline Phosphatase 50 U/L (40-110); Anion Gap 19 mmol/L (10-20); BUN (Urea Nitrogen) 20 mg/dL (7.0-18.7); Bilirubin, Total 0.9 mg/dL (0.2-1.2); Calc. Creatinine Clearance 0 mL/min (70-130); Calcium 10.4 mg/dL (7.8-10.44); Carbon Dioxide 25 mmol/L (22-29); Chloride 99 mmol/L (98-107); Estimated GFR 7; Globulin 4.7 g/dL (2.4-3.5); Glucose 117 mg/dL (70-105); Potassium 3.6 mmol/L (3.5-5.1); Sodium 139 mmol/L (136-145)
[2024-01-14 14:39] LABS: BHCG - Serum Negative (NEGATIVE); Pregs Control Background? CLEAR/WHITE (CLR/WHITE); Pregs Control Bar Appear? YES (CONTROL BAR)
[2024-01-14 14:52] LABS: Prothrombin Time 12.9 sec (12.0-14.7)
[2024-01-14 14:53] LABS: PTT 28.9 sec (22.9-36.1)
[2024-01-14 15:15] LABS: Troponin I Less than 0.010 ng/mL (< 0.028)
[2024-01-14] MEDS ORDERED: Albuterol 200 PUFF (6.7GM INHALER) ONE (16:50)
== END 2024-01-14 17:11 | disposition home or self-care (01) ==
LOC: ERS 12:14
DX: J45.901 Unspecified asthma with (acute) exacerbation (principal); I50.9 Heart failure, unspecified; N18.6 End stage renal disease; Z99.2 Dependence on renal dialysis; Z79.51 Long term (current) use of inhaled steroids
CPT/HCPCS: 71045; 71275; 80053; 82805; 83880; 84484; 84703; 85025; 85610; 85730; 93005; 94640; 94760; J1200; J2919; J3490; J7644; 96374; 96375; J7611

== ENCOUNTER 2024-01-17 10:13 | Inpatient (IN) | payer MEDICARE, MEDICAID ==
[2024-01-17 11:19] LABS: Hematocrit 37.9 % (36.0-47.0); Hemoglobin 12.2 g/dL (12.0-16.0); Mean Corpuscular HGB CONC 32.2 g/dL (32.0-36.0); Mean Corpuscular Hemoglobin 25.3 pg (27.0-31.0); Mean Corpuscular Volume 78.6 fL (78.0-98.0); Mean Platelet Volume 9.1 fL (7.4-10.4); Platelet Count 303 10x3/uL (130-400); RBC Distribution Width 15.3 % (11.5-14.5); Red Blood Cell (RBC) Count 4.82 mill/uL (4.20-5.40)
[2024-01-17] MEDS ORDERED: Sodium Chloride 0.9% 100 ML ONE (11:42)
[2024-01-17] MEDS ORDERED: cefTRIAXone (ROCEPHIN) 1 GM VIAL ONE (11:42)
[2024-01-17] MEDS ORDERED: Azithromycin 500 MG VIAL ONE (11:51)
[2024-01-17] MEDS ORDERED: Ipratropium/Albuterol 3 ML NEB ONE (11:52)
[2024-01-17 11:54] LABS: ALT (SGPT) 14 U/L (8-55); AST (SGOT) 14 U/L (5-34); Albumin 3.2 g/dL (3.5-5.0); Alkaline Phosphatase 64 U/L (40-110); Anion Gap 17 mmol/L (10-20); BUN (Urea Nitrogen) 29 mg/dL (7.0-18.7); Bilirubin, Total 0.9 mg/dL (0.2-1.2); Calc. Creatinine Clearance 0 mL/min (70-130); Calcium 10.2 mg/dL (7.8-10.44); Carbon Dioxide 29 mmol/L (22-29); Chloride 93 mmol/L (98-107); Estimated GFR 8; Glucose 82 mg/dL (70-105); Potassium 4.2 mmol/L (3.5-5.1); Protein, Total 8.2 g/dL (6.0-8.3); Sodium 135 mmol/L (136-145)
[2024-01-17 12:07] LABS: Troponin I 0.026 ng/mL (< 0.028)
[2024-01-17 12:08] LABS: Band 2 % (5-11); Lymphocytes 9 % (21-51); Microcytosis SLIGHT = 6-15 cells HPF (0-5); Monocytes 5 % (0-10); Neutrophil 83 % (42-75); Platelet Adequacy Comment Platelets Normal; Polychromasia SLIGHT = 2-3 cells HPF (0-2); Reactive Lymphocytes 1 % (0-10)
[2024-01-17] MEDS ORDERED: Morphine 4 MG/ML VIAL ONE (13:06)
[2024-01-17] MEDS ORDERED: Metoclopramide HCl 10 MG (2 mL) VIAL ONE (13:06)
[2024-01-17] MEDS ORDERED: Ondansetron ODT 4 MG TAB PO PRN (14:21)
[2024-01-17] MEDS ORDERED: Senokot S 8.6-50 MG TAB PO PRN (14:21)
[2024-01-17] MEDS ORDERED: Ondansetron PF 4 MG/2 ML Vial IVP PRN (14:21)
[2024-01-17] MEDS ORDERED: Acetaminophen 650 MG Suppository PR PRN (14:21)
[2024-01-17] MEDS ORDERED: Ipratropium Bromide 2.5 ml Neb NEB PRN (14:25)
[2024-01-17] MEDS ORDERED: Azithromycin 500 MG in Sodium Chloride 0.9% 250 ML 250 ML IVPB SCH (14:30)
[2024-01-17] MEDS ORDERED: cefTRIAXone\\ROCEPHIN 1 GM in Sodium Chloride 0.9% 100 ML IVPB SCH (14:30)
[2024-01-17] MEDS ORDERED: Metoclopramide HCl 10 MG (2 mL) VIAL IVP PRN (14:37)
[2024-01-17] MEDS ORDERED: Acetaminophen 325 MG TAB ONE (15:04)
[2024-01-17] MEDS: Heparin 5,000 UNITS/ML VIAL SC SCH (15:54)
[2024-01-17] MEDS: Benzonatate 100 MG CAP PO PRN (16:08)
[2024-01-17] MEDS: Metoprolol Tartrate 25 MG TAB PO SCH (17:03)
[2024-01-17] MEDS: Ipratropium/Albuterol 3 ML NEB NEB SCH (20:31)
[2024-01-17] MEDS: Famotidine 20 MG TAB PO SCH (21:52)
[2024-01-18 05:52] LABS: Hematocrit 35.2 % (36.0-47.0); Hemoglobin 11.2 g/dL (12.0-16.0); Mean Corpuscular HGB CONC 31.8 g/dL (32.0-36.0); Mean Corpuscular Hemoglobin 25.3 pg (27.0-31.0); Mean Corpuscular Volume 79.6 fL (78.0-98.0); Mean Platelet Volume 9.4 fL (7.4-10.4); Platelet Count 236 10x3/uL (130-400); RBC Distribution Width 15.4 % (11.5-14.5); Red Blood Cell (RBC) Count 4.42 mill/uL (4.20-5.40)
[2024-01-18 06:21] LABS: ALT (SGPT) 11 U/L (8-55); AST (SGOT) 9 U/L (5-34); Albumin 2.5 g/dL (3.5-5.0); Alkaline Phosphatase 64 U/L (40-110); Anion Gap 19 mmol/L (10-20); BUN (Urea Nitrogen) 46 mg/dL (7.0-18.7); Bilirubin, Total 0.6 mg/dL (0.2-1.2); Calc. Creatinine Clearance 18 mL/min (70-130); Carbon Dioxide 23 mmol/L (22-29); Chloride 97 mmol/L (98-107); Estimated GFR 6; Globulin 4.3 g/dL (2.4-3.5); Glucose 78 mg/dL (70-105); Protein, Total 6.8 g/dL (6.0-8.3); Sodium 134 mmol/L (136-145)
[2024-01-18 06:32] LABS: Eosinophils 1 % (0-10); Lymphocytes 7 % (21-51); Monocytes 3 % (0-10); Neutrophil 89 % (42-75); Platelet Adequacy Comment Platelets Normal; RBC Morphology Within Normal Limits
[2024-01-18] MEDS: Morphine 2 MG/ML VIAL SLOW IVP PRN (07:13)
[2024-01-18 08:26] LABS: HBSAB Concentration Less than 8.00 mIU/mL; HBsAg Index 0.26 S/CO (0-0.99); Hep B Core Total Ab NONREACTIVE (NonReactive); Hep B Core Total Index 0.19 S/CO (0-0.79); Hep B Surf AB NONREACTIVE (NonReactive); Hep B Surf Ag NONREACTIVE S/CO (NonReactive); Hep C IgG Ab NONREACTIVE S/CO (NonReactive); Hep C Index 0.08 S/CO (0-0.79)
[2024-01-18] MEDS: predniSONE 50 MG TAB PO SCH (09:47)
[2024-01-18] MEDS: Metoprolol Tartrate 25 MG TAB PO SCH (09:48)
[2024-01-18] MEDS ORDERED: Ipratropium/Albuterol 3 ML NEB NEB PRN (10:47)
[2024-01-18] MEDS: cefTRIAXone\\ROCEPHIN 1 GM in Sodium Chloride 0.9% 100 ML IVPB SCH (12:26)
[2024-01-18] MEDS ORDERED: Vancomycin Dialysis Sliding Scale (Wt > 99) FS SCH (13:00)
[2024-01-18] MEDS: guaiFENesin/DM ER PO SCH ×2 (13:56→21:54)
[2024-01-18] MEDS: Azithromycin 500 MG in Sodium Chloride 0.9% 250 ML 250 ML IVPB SCH (13:56)
[2024-01-18] MEDS: Lidocaine 4% Patch TD SCH (13:56)
[2024-01-18 15:23] VITALS: BMI 434.0
[2024-01-18] MEDS: Vancomycin (BATCH) 2 GM in Premix 1 BAG IVPB SCH (15:24)
[2024-01-19] MEDS: LIDOCAINE Patch Removal TOP SCH (01:12)
[2024-01-19 05:03] LABS: #Eosinophils Less than 0.03 10x3/uL (0.0-0.7); %Basophils 0.4 % (0.0-1.0); %Lymphocytes 5.1 % (21.0-51.0); %Monocytes 3.1 % (0.0-10.0); %Neutrophils 88.7 % (42.0-75.0); Hemoglobin 10.5 g/dL (12.0-16.0); Mean Corpuscular HGB CONC 31.8 g/dL (32.0-36.0); Mean Corpuscular Hemoglobin 25.7 pg (27.0-31.0); Mean Corpuscular Volume 80.7 fL (78.0-98.0); Mean Platelet Volume 9.6 fL (7.4-10.4); Platelet Count 251 10x3/uL (130-400); RBC Distribution Width 15.1 % (11.5-14.5); Red Blood Cell (RBC) Count 4.09 mill/uL (4.20-5.40)
[2024-01-19 05:21] LABS: Anion Gap 20 mmol/L (10-20); BUN (Urea Nitrogen) 66 mg/dL (7.0-18.7); Calc. Creatinine Clearance 0 mL/min (70-130); Calcium 8.4 mg/dL (7.8-10.44); Carbon Dioxide 21 mmol/L (22-29); Chloride 100 mmol/L (98-107); Estimated GFR 5; Glucose 125 mg/dL (70-105); Potassium 5.4 mmol/L (3.5-5.1); Sodium 136 mmol/L (136-145)
[2024-01-19] MEDS ORDERED: Heparin 10,000 UNITS/ 10 ML VIAL ONE (11:18)
[2024-01-19] MEDS: Guaifenesin DM 100-10/5 ML UDCUP PO PRN (16:51)
[2024-01-19 20:53] LABS: Vancomycin, Trough 17.3 ug/mL
[2024-01-19] MEDS: Vancomycin 1 GM in Premix 1 BAG IVPB SCH (22:38)
[2024-01-20 04:55] LABS: #Basophils 0.11 10x3/uL (0.0-0.2); %Basophils 0.7 % (0.0-1.0); %Eosinophils 1.7 % (0.0-10.0); %Neutrophils 70.2 % (42.0-75.0); Hematocrit 33.6 % (36.0-47.0); Hemoglobin 10.7 g/dL (12.0-16.0); Mean Corpuscular HGB CONC 31.8 g/dL (32.0-36.0); Mean Corpuscular Hemoglobin 25.5 pg (27.0-31.0); Mean Platelet Volume 9.1 fL (7.4-10.4); Platelet Count 257 10x3/uL (130-400); RBC Distribution Width 15.2 % (11.5-14.5)
[2024-01-20 05:38] LABS: Anion Gap 19 mmol/L (10-20); BUN (Urea Nitrogen) 43 mg/dL (7.0-18.7); Calc. Creatinine Clearance 21 mL/min (70-130); Carbon Dioxide 24 mmol/L (22-29); Chloride 99 mmol/L (98-107); Estimated GFR 7; Glucose 100 mg/dL (70-105); Potassium 3.9 mmol/L (3.5-5.1); Sodium 138 mmol/L (136-145)
[2024-01-20] MEDS: FLU (Fluarix Triv) TS24-25(6MOS UP)/PF 45 MCG/0.5 ML Syringe IM ONE (14:31)
[2024-01-20] MEDS: Acetaminophen 325 MG TAB PO PRN (15:09)
[2024-01-20] MEDS: Ondansetron PF 4 MG/2 ML Vial IVP PRN (15:54)
[2024-01-21 04:22] LABS: Hematocrit 32.8 % (36.0-47.0); Hemoglobin 10.4 g/dL (12.0-16.0); Mean Corpuscular HGB CONC 31.7 g/dL (32.0-36.0); Mean Corpuscular Hemoglobin 25.4 pg (27.0-31.0); Mean Corpuscular Volume 80.2 fL (78.0-98.0); Mean Platelet Volume 8.8 fL (7.4-10.4); Platelet Count 226 10x3/uL (130-400); RBC Distribution Width 14.9 % (11.5-14.5); Red Blood Cell (RBC) Count 4.09 mill/uL (4.20-5.40)
[2024-01-21 04:35] LABS: Anion Gap 19 mmol/L (10-20); BUN (Urea Nitrogen) 58 mg/dL (7.0-18.7); Calc. Creatinine Clearance 16 mL/min (70-130); Calcium 7.6 mg/dL (7.8-10.44); Carbon Dioxide 22 mmol/L (22-29); Chloride 101 mmol/L (98-107); Estimated GFR 5; Glucose 100 mg/dL (70-105); Potassium 3.9 mmol/L (3.5-5.1); Sodium 138 mmol/L (136-145)
[2024-01-21 04:48] LABS: Band 6 % (5-11); Eosinophils 2 % (0-10); Hypochromia SLIGHT = 6-15 cells HPF (0-5); Lymphocytes 19 % (21-51); Monocytes 3 % (0-10); Neutrophil 64 % (42-75); Platelet Adequacy Comment Platelets Normal; Polychromasia SLIGHT = 2-3 cells HPF (0-2); Reactive Lymphocytes 4 % (0-10)
[2024-01-21 07:35] LABS: Vancomycin, Trough 30.1 ug/mL
[2024-01-21] MEDS ORDERED: Heparin 10,000 UNITS/ 10 ML VIAL ONE (11:25)
[2024-01-21] MEDS: Cefdinir 300 MG CAP PO SCH (14:01)
[2024-01-21 14:27] VITALS: BP 124/68; TEMP 97.6
== END 2024-01-21 14:30 | disposition home or self-care (01) | DRG 871 ==
LOC: ERS 10:13 → OBS 15:20 → OBSVTOIN 01-18 10:36
PROVIDERS: ADMIT Family Medicine; ATTEND Internal Medicine
PROC: 3E0234Z Introduction of Serum, Toxoid and Vaccine into Muscle, Percutaneous Approach (ICD-10-PCS; principal; 2024-01-18)
PROC: 3E04329 Introduction of Other Anti-infective into Central Vein, Percutaneous Approach (ICD-10-PCS; 2024-01-18)
DX: A41.9 Sepsis, unspecified organism (principal); I50.33 Acute on chronic diastolic (congestive) heart failure; J18.9 Pneumonia, unspecified organism; N18.6 End stage renal disease; I13.2 Hypertensive heart and chronic kidney disease with heart failure and with stage 5 chronic kidney disease, or end stage renal disease; E87.1 Hypo-osmolality and hyponatremia; N25.81 Secondary hyperparathyroidism of renal origin; D63.1 Anemia in chronic kidney disease; F32.A Depression, unspecified; F41.9 Anxiety disorder, unspecified; J45.909 Unspecified asthma, uncomplicated; I07.1 Rheumatic tricuspid insufficiency; E87.5 Hyperkalemia; G40.909 Epilepsy, unspecified, not intractable, without status epilepticus; Z99.2 Dependence on renal dialysis; Z79.899 Other long term (current) drug therapy; Z23 Encounter for immunization
CPT/HCPCS: 36415; 36416; 71045; 80048; 80053; 80202; 83605; 83880; 84484; 85025; 86704; 86706; 86803; 87040; 87070; 87081; 87205; 87340; 87428; 94640; 96365; 96372; 96375; 96376; G0378; J0456; J0696; J1644; J2272; J2405; J2765; J3370; J3370-JW; J7050; J7512; J7620